=== PATIENT | male | born 1970 | race Caucasian/White ===

== ENCOUNTER 2018-10-12 11:31 | Inpatient (IN) | payer SELFPAY ==
[~2018-10-12] VITALS: Ht 182.9 cm; Wt 86.5 kg
[2018-10-12] MEDS ORDERED: ONDANSETRON HCL 4 MG/2 ML VIAL IV ONE (12:30)
[2018-10-12] MEDS ORDERED: MORPHINE SULFATE 4 MG/ML SYR/VIAL IV ONE (12:30)
[2018-10-12] MEDS ORDERED: NITROGLYCERIN 0.4 MG SL TAB SL PRN (13:30)
[2018-10-12] MEDS ORDERED: MORPHINE SULF INJ 2 MG/ML SYRINGE 1ML IV PRN (13:30)
[2018-10-12 13:58] LABS: Basophils # (auto) 0 uL; Basophils % (auto) 0.6 % (0.0-2.0); Eosinophils # (auto) 0.4 uL; Eosinophils % (auto) 4.9 % (0.0-7.0); Hematocrit 41.4 % (41.0-53.0); Lymphocytes # (auto) 1.4 uL; Mean Corpuscular Hemoglobin 30.8 pg (28.0-32.0); Mean Corpuscular Hgb Conc. 33.8 g/dL (32.0-36.0); Mean Corpuscular Volume 91.2 fL (80.0-100.0); Monocytes # (auto) 0.8 uL; Monocytes % (auto) 9.8 % (0.0-12.0); Neutrophils # (auto) 5.3 uL; Neutrophils % (auto) 66.7 % (37.0-80.0); Platelet Count (auto) 266 10^3/uL (140-450); Red Blood Cells 4.54 10^6/uL (4.5-5.90); Red Cell Distribution Width 14.7 % (11.8-14.3)
[2018-10-12] MEDS ORDERED: ALBUTEROL SULF 2.5 MG/0.5ML(0.5%) NEB SOLN NEB SCH (14:00)
[2018-10-12] MEDS ORDERED: IPRATROPIUM BROM 0.5 MG/2.5ML INH SOL NEB SCH (14:00)
[2018-10-12] MEDS: SOD CHL 0.9%/ KCL 20MEQ 1,000 ML IV SCH ×2 (14:03→23:54)
[2018-10-12 14:11] LABS: Albumin 2.9 g/dL (3.4-5.0); BUN/Creatinine Ratio 22.9; Calcium 8.3 mg/dL (8.5-10.1); Magnesium 2.4 mg/dL (1.6-2.6)
[2018-10-12 14:13] LABS: Bilirubin, Total 0.5 mg/dL (0.2-1.0); Total Protein 6.7 g/dL (6.4-8.2)
[2018-10-12 14:14] LABS: INR 0.96 (0.9-1.15); Partial Thromboplastin Time 26.2 sec (23.64-32.05)
[2018-10-12 14:42] VITALS: BP 138/85
--- NOTE | 2018-10-12 16:30 | NUR ---
OPENING PATIENT IS ON THE FLOOR, WILL FOLLOW UP WITH ASSESSMENT.
[2018-10-12] MEDS ORDERED: ALBUTEROL SULF 2.5 MG/0.5ML(0.5%) NEB SOLN NEB PRN (17:45)
[2018-10-12] MEDS ORDERED: IPRATROPIUM BROM 0.5 MG/2.5ML INH SOL NEB PRN (17:45)
[2018-10-12] MEDS: MORPHINE SULF INJ 2 MG/ML SYRINGE 1ML IV PRN (18:32)
[2018-10-12] MEDS ORDERED: ALBUAER3 IN (19:08)
--- NOTE | 2018-10-12 19:30 | NUR ---
Opening Shift Note Assumed care of patient, awake and alert x4. Patient complains of pain to abdomen area (09/27), will medicate patient as ordered. No S/S of distress/SOB noted. Instructed on plan of care and to call for assistance as needed. Bed is locked in lowest position, side rails x 2 are up, and call light is within reach.
[2018-10-12] MEDS: FAMOTIDINE (10MG/ML) 2ML VL IV SCH (21:17)
[2018-10-12 22:00] VITALS: BP 117/72
--- NOTE | 2018-10-13 02:30 | NUR ---
PT SEEN SLEEPING IN BED ON RA WITH SPO2 92%, BS CLEAR AND DIMINISHED. NO RESP DISTRESS. PRN NEB TX NOT GIVEN AT THIS TIME.
[2018-10-13 05:00] VITALS: BP 133/67
[2018-10-13] MEDS: MORPHINE SULF INJ 2 MG/ML SYRINGE 1ML IV PRN ×3 (05:17→20:41)
--- NOTE | 2018-10-13 07:30 | NUR ---
OPENING SHIFT NOTE ASSUMED CARE OF PATIENT FROM COUNTERSINKER RN ADAN. PATIENT IS AWAKE AND ALERT X4. PATIENT HAS NO S/S OF DISTRESS/SOB OR PAIN. INSTRUCTED PATIENT ON POC, PATIENT VERBALIZED UNDERSTANDING. BED IS IN LOWEST POSITION WITH SIDE RAILS RAISED X2, BED WHEELS LOCKED, AND CALL LIGHT IS WITHIN REACH. WILL CONTINUE TO MONITOR.
--- NOTE | 2018-10-13 07:41 | NUR ---
CLOSING SHIFT NOTE Endorsed patient care to Latasha MARTE.
[2018-10-13 07:44] VITALS: BP 117/70
--- NOTE | 2018-10-13 09:13 | NUR ---
Respiratory note: ROUTINE PRN TX CHECK. HR 61, RR 16, POX 98% ON RA, BREATH SOUNDS ARE CLEAR. NO SOB OR DISTRESS NOTED. PT WAS NOTIFY TO HAVE RN PAGE RT FOR MN TX.
[2018-10-13] MEDS: FAMOTIDINE (10MG/ML) 2ML VL IV SCH ×2 (09:49→22:13)
[2018-10-13] MEDS: SOD CHL 0.9%/ KCL 20MEQ 1,000 ML IV SCH ×2 (10:56→18:45)
[2018-10-13] MEDS ORDERED: LEVOFLOXACIN 750MG 150 ML IV ONE (11:00)
--- NOTE | 2018-10-13 11:02 | NUR ---
MD SEN AT BEDSIDE UPDATED MD ON PATIENT'S STATUS, MD IS AWARE. NO NEW ORDERS GIVEN AT THIS TIME. WILL CONTINUE TO MONITOR.
--- NOTE | 2018-10-13 12:34 | NUR ---
PATIENT TAKEN DOWN TO PREOP VIA GURNEY. PATIENT HAS NO S/S OF DISTRESS/SOB OR PAIN AT THIS TIME. HAND OFF REPORT GIVEN TO PRE OP RN MADYSON
[2018-10-13] MEDS ORDERED: POVIDONE IODINE 10 % TOPICAL OINT 30GM TOP ONE (13:19)
[2018-10-13] MEDS ORDERED: BUPIVACAINE W/ EPINEPH 0.25% INJ 50ML MDV ONE (13:19)
[2018-10-13] MEDS ORDERED: LIDOCAINE W/ EPINEPHRINE 1% 20ML VIAL ONE (13:19)
[2018-10-13] MEDS ORDERED: LIDOCAINE 1% (LOCAL ANESTH.) PF 5ml SDV ONE (13:25)
[2018-10-13] MEDS ORDERED: SUCCINYLCHOLINE CHLORIDE 20 MG/ML 10ML VIAL IV ONE (13:25)
[2018-10-13] MEDS ORDERED: MIDAZOLAM HCL 1MG/1ML-2 ML VIAL ONE (13:28)
[2018-10-13] MEDS ORDERED: ROCURONIUM 10MG/ML 10ML VIAL IV ONE (13:29)
[2018-10-13] MEDS ORDERED: METOCLOPRAMIDE HCL 5MG/ml INJ 2ml VIAL ONE (13:30)
[2018-10-13] MEDS ORDERED: PROPOFOL 10 MG/ML 20 ML IV ONE (13:30)
[2018-10-13] MEDS ORDERED: ONDANSETRON HCL 4 MG/2 ML VIAL IV ONE (13:45)
[2018-10-13] MEDS ORDERED: HYDROmorphone HCL 2 MG/ML VL IV PRN ×2 (13:45)
[2018-10-13] MEDS ORDERED: NALOXONE HCL 0.4 MG/ML VIAL IV PRN (13:45)
[2018-10-13] MEDS ORDERED: fentaNYL CITRATE 100 MCG/2 ML VL ONE (13:47)
[2018-10-13] MEDS ORDERED: ePHEDrine SULFATE 50 MG/ML AMP ONE (14:07)
[2018-10-13] MEDS ORDERED: SODIUM CHLORIDE LOCK 10 ML ONE (14:07)
[2018-10-13] MEDS ORDERED: GLYCOPYRROLATE 0.2 MG/ML 1ML VIAL ONE (15:01)
[2018-10-13] MEDS ORDERED: NEOSTIGMINE 1 MG/ML INJ (10mg/10ML VIAL) ONE (15:01)
--- NOTE | 2018-10-13 15:54 | NUR ---
RECEIVED HAND OFF REPORT FROM OTR OWNER OPERATOR. PER OTR OWNER OPERATOR SHE DID NOT PUT ON JOCK STRAP
--- NOTE | 2018-10-13 16:10 | NUR ---
PATIENT BACK IN ROOM FROM PACU. PATIENT HAS NO S/S OF DISTRESS/SOB OR PAIN. WILL CONTINUE TO MONITOR. BED IS IN LOWEST POSITION WITH SIDE RAILS RAISED X2, BED WHEELS LOCKED, CALL LIGHT IS WITHIN REACH, AND BED ALARM IS ON. WILL CONTINUE TO MONITOR.
[2018-10-13 17:13] VITALS: BP 102/61
--- NOTE | 2018-10-13 19:06 | NUR ---
Respiratory note: ASSESSMENT FOR PRN MED NEB TX. HR 66, SPO2 98%, RR 17, BS DIMINISHED. PT AWARE TO HAVE RN PAGE RT IF MED NEB TX IS NEEDED, WILL CONTINUE TO MONITOR.
--- NOTE | 2018-10-13 19:20 | NUR ---
CLOSING SHIFT NOTE ENDORSED CARE TO PASSENGER BARGE MASTER ESTUARDO RIOS. PATIENT HAS NO S/S OF DISTRESS/SOB OR PAIN.
--- NOTE | 2018-10-13 19:39 | NUR ---
received pt from day rn poc reviewed
[2018-10-13] MEDS: ONDANSETRON HCL 4 MG/2 ML VIAL IV PRN (20:42)
--- NOTE | 2018-10-13 21:40 | NUR ---
resting comfortable dressing dry and intact
[2018-10-13 22:00] VITALS: BP 110/70
[2018-10-14] MEDS: ONDANSETRON HCL 4 MG/2 ML VIAL IV PRN ×2 (03:35→08:29)
[2018-10-14] MEDS: MORPHINE SULF INJ 2 MG/ML SYRINGE 1ML IV PRN ×2 (03:35→08:29)
[2018-10-14 05:00] VITALS: BP 116/61
[2018-10-14] MEDS: SOD CHL 0.9%/ KCL 20MEQ 1,000 ML IV SCH (06:39)
--- NOTE | 2018-10-14 06:57 | NUR ---
pain relieved with med given, report given to am nurse poc reviewed
[2018-10-14 09:00] VITALS: BP_SYST 113; BP_SYST 128; BP_DIAS 63; BP_DIAS 77
--- NOTE | 2018-10-14 09:02 | NUR ---
Patient stated he lives with sister at home. Patient is not homeless. Patient stated he will return to sister's house when he is discharged,
--- NOTE | 2018-10-14 09:37 | NUR ---
Respiratory note: ASSESSED PATIENT FOR PRN BREATHING TX. PATIENT IS AWAKE AND ALERT. NO RESPIRATORY DISTRESS NOTED OR STATED AT THIS TIME. PATIENT IS CURRENTLY ON ROOM AIR AND SPO2 96%, RR 16, HR 61. PATIENT WAS EDUCATED TO HAVE RT PAGED IF BREATHING TX IS NEEDED. WILL CONTINUE TO MONITOR. WILL NOTIFY RN.
[2018-10-14] MEDS: FAMOTIDINE (10MG/ML) 2ML VL IV SCH (09:57)
--- NOTE | 2018-10-14 10:00 | NUR ---
Patient using jock strap at bedside.
--- NOTE | 2018-10-14 12:02 | NUR ---
Rounded on patient. Patient seen eating a whole tray of moroccan food brought in by family. Regular texture and regular diet. No distress noted after eating solid food.
--- NOTE | 2018-10-14 15:30 | NUR ---
Spoke with Dr. Roche. Explained to MD patient lives with sister. Per MD, patient may be discharged home. Explained to MD patient stated he has hepatitic C and cannot take OTC ibuprofen, per MD no new prescriptions given and have patient follow with primary care regarding pain management. Patient and family verbalized understanding. MD aware patient ate whole tray of mozambican food brought in by family for lunch, patient may be discharged home without waiting for dinner.
--- NOTE | 2018-10-14 17:09 | NUR ---
Discharge instructions given as ordered. Encourage to follow up with PMD as instructed. All questions and concerns addressed. Patient verbalized understanding. Medication reconciliation form completed and copy given to patient. Patient denies home medications held in Pharmacy. IV removed with catheter intact, pressure dressing applied. Patient requested to ambulate to vehicle with all personal belongings, accompanied by family member. No distress noted at time of departure. Patient is returning to his sister's house where he stated he lives. Patient has a cane for home use. Patient given Alyssa Cardozo's business card for continuum of care assistance.
== END 2018-10-14 17:09 | disposition home or self-care (01) | DRG 351 ==
LOC: ER 11:38 → MERGE 11:39 → OVERFLOW 11:39 → WEST WING 17:12
PROVIDERS: ADMIT Nurse Practitioner Acute Care; ATTEND Internal Medicine Pulmonary Disease
PROC: 0YQ60ZZ Repair Left Inguinal Region, Open Approach (ICD-10-PCS; principal; 2018-10-13 13:31)
DX: K40.30 Unilateral inguinal hernia, with obstruction, without gangrene, not specified as recurrent (principal); E44.0 Moderate protein-calorie malnutrition; F17.210 Nicotine dependence, cigarettes, uncomplicated; J45.909 Unspecified asthma, uncomplicated; Z96.651 Presence of right artificial knee joint; Z59.0 Homelessness; Z68.25 Body mass index [BMI] 25.0-25.9, adult; Z88.0 Allergy status to penicillin; Z88.1 Allergy status to other antibiotic agents; Z90.49 Acquired absence of other specified parts of digestive tract
CPT/HCPCS: 36415; 71045; 80053; 83735; 85025; 85610; 85730; 93005; G0378; J0330; J1956; J2250; J2405; J2704; J3490

== ENCOUNTER 2019-05-30 16:34 | Emergency (ER) | payer MEDICAID ==
[~2019-05-30] VITALS: Ht 182.9 cm; Wt 85.7 kg
[~2019-05-30 16:34] MED LIST: ALBUAER3 IN
[2019-05-30] MEDS ORDERED: ALBUTEROL SULF 2.5 MG/0.5ML(0.5%) NEB SOLN NEB ONE (17:30)
[2019-05-30] MEDS ORDERED: methylPREDNISolone SOD SUCC 125 MG/2 ML VL IV ONE (17:30)
[2019-05-30] MEDS ORDERED: ACETAMINOPHEN 500 MG TAB PO ONE (17:30)
[2019-05-30] MEDS ORDERED: IPRATROPIUM BROM 0.5 MG/2.5ML INH SOL NEB ONE (17:30)
[2019-05-30 17:38] LABS: Basophils # (auto) 0.1 uL; Basophils % (auto) 0.3 % (0.0-2.0); Eosinophils # (auto) 0 uL; Eosinophils % (auto) 0.2 % (0.0-7.0); Hematocrit 44.7 % (41.0-53.0); Hemoglobin 15.5 g/dL (13.5-17.5); Lymphocytes # (auto) 1.8 uL; Lymphocytes % (auto) 11.3 % (10.0-50.0); Mean Corpuscular Hemoglobin 31.4 pg (28.0-32.0); Mean Corpuscular Hgb Conc. 34.6 g/dL (32.0-36.0); Mean Corpuscular Volume 90.7 fL (80.0-100.0); Monocytes # (auto) 2.3 uL; Monocytes % (auto) 14.9 % (0.0-12.0); Neutrophils # (auto) 11.4 uL; Neutrophils % (auto) 73.3 % (37.0-80.0); Platelet Count (auto) 196 10^3/uL (140-450); Red Blood Cells 4.93 10^6/uL (4.5-5.90); White Blood Cell 15.6 10^3/uL (4.4-10.8)
[2019-05-30 18:00] LABS: Albumin 3.1 g/dL (3.4-5.0); BUN/Creatinine Ratio 13.4; Calcium 8.2 mg/dL (8.5-10.1); Potassium 3.4 mmol/L (3.5-5.1)
[2019-05-30 18:02] LABS: Bilirubin, Total 1.1 mg/dL (0.2-1.0); Total Protein 7.6 g/dL (6.4-8.2)
[2019-05-30] MEDS ORDERED: cefTRIAXone SOD 1,000 MG VL IM ONE (19:00)
[2019-05-30 19:35] VITALS: BP 109/70
[2019-05-30] MEDS ORDERED: SODIUM CHLORIDE 0.9% 500 ML IV ONE (19:45)
[2019-05-30] MEDS ORDERED: DOXYCYCLINE 100MG/250ML 250 ML IV ONE ×2 (19:45→20:43)
== END 2019-05-30 21:20 | disposition home or self-care (01) ==
LOC: ER 16:34
DX: J21.9 Acute bronchiolitis, unspecified (principal); J45.909 Unspecified asthma, uncomplicated
CPT/HCPCS: 36415; 71046; 80053; 83605; 83880; 85025; 87040; 87804; 93005; 94640; 96365; 96375; 99285; J0696; J2930; J3490; J7611; J7644

== ENCOUNTER 2020-08-20 03:09 | Emergency (ER) | payer MEDICAID ==
[~2020-08-20] VITALS: Ht 182.9 cm; Wt 106.6 kg
[2020-08-20] MEDS ORDERED: ONDANSETRON HCL 4 MG/2 ML VIAL IV ONE ×2 (05:00→07:45)
[2020-08-20] MEDS ORDERED: MORPHINE SULFATE 4 MG/ML SYR/VIAL IV ONE (05:00)
[2020-08-20 05:19] LABS: Basophils # (auto) 0.1 10 ^3/uL (0-0.2); Basophils % (auto) 0.7 % (0.0-2.0); Eosinophils # (auto) 0.5 10 ^3/uL (0-0.8); Eosinophils % (auto) 4.3 % (0.0-7.0); Hematocrit 41.7 % (41.0-53.0); Hemoglobin 14.2 g/dL (13.5-17.5); Lymphocytes # (auto) 2.5 10 ^3/uL (0.4-5.4); Lymphocytes % (auto) 20.1 % (10.0-50.0); Mean Corpuscular Hemoglobin 31.1 pg (28.0-32.0); Mean Corpuscular Hgb Conc. 34.1 g/dL (32.0-36.0); Mean Corpuscular Volume 91.3 fL (80.0-100.0); Monocytes # (auto) 1.2 10 ^3/uL (0-1.3); Monocytes % (auto) 9.6 % (0.0-12.0); Neutrophils % (auto) 65.3 % (37.0-80.0); Platelet Count (auto) 358 10^3/uL (140-450); Red Blood Cells 4.56 10^6/uL (4.5-5.90); Red Cell Distribution Width 13.9 % (11.8-14.3); White Blood Cell 12.2 10^3/uL (4.4-10.8)
[2020-08-20] MEDS ORDERED: CLINDAMYCIN 900MG IV 50 ML IV ONE (05:30)
[2020-08-20 05:36] LABS: Albumin 2.9 g/dL (3.4-5.0); Calcium 8.3 mg/dL (8.5-10.1); Potassium 4.3 mmol/L (3.5-5.1)
[2020-08-20 05:39] LABS: Total Protein 6.8 g/dL (6.4-8.2)
[2020-08-20 06:36] LABS: INR 1.02 (0.9-1.15); Partial Thromboplastin Time 26.1 sec (23.0-31.2)
[2020-08-20] MEDS ORDERED: VANCOMYCIN 1GM/250ML 250 ML IV ONE (07:00)
[2020-08-20] MEDS ORDERED: cefTRIAXone 1GM/50ML D5W 50 ML IV ONE (07:00)
[2020-08-20] MEDS ORDERED: HYDROmorphone HCL 2 MG/ML VL IV ONE (07:45)
[2020-08-20 08:00] VITALS: BP 173/95
== END 2020-08-20 11:54 | disposition home or self-care (01) ==
LOC: ER 03:12
DX: S82.91XA Unspecified fracture of right lower leg, initial encounter for closed fracture (principal); L03.115 Cellulitis of right lower limb; J45.909 Unspecified asthma, uncomplicated; Z20.822 Contact with and (suspected) exposure to COVID-19; Z88.0 Allergy status to penicillin; Z88.1 Allergy status to other antibiotic agents; V43.52XA Car driver injured in collision with other type car in traffic accident, initial encounter; Y93.89 Activity, other specified; Y92.89 Other specified places as the place of occurrence of the external cause; Y99.8 Other external cause status
CPT/HCPCS: 36415; 73700; 80053; 83605; 85025; 85610; 85730; 87040; 87426; 93971; 96365; 96366; 96367; 96368; 96375; 96376; 99285; J0696; J1170; J2270; J2405; J3370; J3490; J7030

== ENCOUNTER 2020-09-10 01:04 | Emergency (ER) | payer OTHER ==
[~2020-09-10] VITALS: Ht 182.9 cm; Wt 104.3 kg
[2020-09-10 03:47] LABS: Basophils # (auto) 0.1 10 ^3/uL (0-0.2); Basophils % (auto) 0.7 % (0.0-2.0); Eosinophils # (auto) 0.5 10 ^3/uL (0-0.8); Eosinophils % (auto) 5.5 % (0.0-7.0); Hematocrit 42.8 % (41.0-53.0); Hemoglobin 14.9 g/dL (13.5-17.5); Lymphocytes # (auto) 2.8 10 ^3/uL (0.4-5.4); Lymphocytes % (auto) 33.2 % (10.0-50.0); Mean Corpuscular Hemoglobin 31.7 pg (28.0-32.0); Mean Corpuscular Hgb Conc. 34.9 g/dL (32.0-36.0); Mean Corpuscular Volume 90.9 fL (80.0-100.0); Monocytes # (auto) 0.9 10 ^3/uL (0-1.3); Monocytes % (auto) 10.5 % (0.0-12.0); Neutrophils # (auto) 4.2 10 ^3/uL (1.6-8.6); Neutrophils % (auto) 50.1 % (37.0-80.0); Platelet Count (auto) 283 10^3/uL (140-450); Red Blood Cells 4.71 10^6/uL (4.5-5.90); Red Cell Distribution Width 13.9 % (11.8-14.3); White Blood Cell 8.3 10^3/uL (4.4-10.8)
[2020-09-10 04:17] LABS: Albumin 3.1 g/dL (3.4-5.0); BUN/Creatinine Ratio 15.7; Calcium 8.3 mg/dL (8.5-10.1); Magnesium 1.9 mg/dL (1.6-2.6); Potassium 3.8 mmol/L (3.5-5.1)
[2020-09-10 04:20] LABS: Bilirubin, Total 0.3 mg/dL (0.2-1.0); Total Protein 7.2 g/dL (6.4-8.2)
[2020-09-10] MEDS ORDERED: VANCOMYCIN 1GM/250ML 250 ML IV ONE (04:45)
[2020-09-10] MEDS ORDERED: SODIUM CHLORIDE 0.9% 1,000 ML IV ONE (04:45)
[2020-09-10] MEDS ORDERED: fentaNYL CITRATE 100 MCG/2 ML VL IV ONE (04:45)
[2020-09-10] MEDS ORDERED: ONDANSETRON HCL 4 MG/2 ML VIAL IV ONE (04:45)
[2020-09-10 05:30] LABS: CRP High Sensitivity 0.34 mg/dL (< 0.3)
[2020-09-10 05:31] VITALS: BP 139/66
== END 2020-09-10 06:18 | disposition left against medical advice (07) ==
LOC: ER 02:23
DX: L03.114 Cellulitis of left upper limb (principal); Z88.0 Allergy status to penicillin; Z88.1 Allergy status to other antibiotic agents
CPT/HCPCS: 36415; 73130; 80053; 83605; 83735; 85025; 85652; 86141; 87040; 96365; 96375; 99284; J2405; J3010; J3370; J7030

== ENCOUNTER 2021-04-26 14:58 | Emergency (ER) | payer MEDICAID ==
[~2021-04-26] VITALS: Ht 182.9 cm; Wt 108.9 kg
[2021-04-26 17:02] VITALS: BP 136/94
[2021-04-26] MEDS ORDERED: IBUP800T27 PO (17:19)
[2021-04-26] MEDS ORDERED: SULF400T11 PO (17:19)
== END 2021-04-26 17:33 | disposition home or self-care (01) ==
LOC: ER 14:58
DX: L03.011 Cellulitis of right finger (principal); J45.909 Unspecified asthma, uncomplicated; Z88.0 Allergy status to penicillin; Z88.1 Allergy status to other antibiotic agents

== ENCOUNTER 2021-05-10 13:35 | Inpatient (IN) | payer MEDICAID ==
[~2021-05-10] VITALS: Ht 182.9 cm; Wt 111.4 kg
[~2021-05-10 13:35] MED LIST changes: +IBUP800T27 PO; +SULF400T11 PO
[2021-05-10 16:36] LABS: Basophils # (auto) 0 10 ^3/uL (0-0.2); Basophils % (auto) 0.7 % (0.0-2.0); Eosinophils # (auto) 0.1 10 ^3/uL (0-0.8); Eosinophils % (auto) 1.3 % (0.0-7.0); Hematocrit 47.4 % (41.0-53.0); Lymphocytes # (auto) 1.3 10 ^3/uL (0.4-5.4); Lymphocytes % (auto) 18.4 % (10.0-50.0); Mean Corpuscular Hemoglobin 30.9 pg (28.0-32.0); Mean Corpuscular Hgb Conc. 33.9 g/dL (32.0-36.0); Mean Corpuscular Volume 91.1 fL (80.0-100.0); Monocytes # (auto) 0.8 10 ^3/uL (0-1.3); Monocytes % (auto) 11.4 % (0.0-12.0); Neutrophils % (auto) 68.2 % (37.0-80.0); Nucleated Red Blood Cells % 0.2 %; Red Cell Distribution Width 14.1 % (11.8-14.3); White Blood Cell 7.3 10^3/uL (4.4-10.8)
[2021-05-10 16:55] LABS: Potassium 3.9 mmol/L (3.5-5.1)
[2021-05-10 17:04] LABS: Albumin 3.8 g/dL (3.4-5.0); BUN/Creatinine Ratio 15.7; Bilirubin, Total 0.6 mg/dL (0.2-1.0); Calcium 9.1 mg/dL (8.5-10.1); Total Protein 7.6 g/dL (6.4-8.2)
[2021-05-10] MEDS ORDERED: IOHEXOL 300 MG/ML 100ML BOTTLE IJ ONE (17:23)
[2021-05-10] MEDS ORDERED: SODIUM CHLORIDE 0.9% 1,000 ML IV ONE (19:00)
[2021-05-10] MEDS ORDERED: SUCCINYLCHOLINE CHLORIDE 20 MG/ML 10ML VIAL IV ONE (19:11)
[2021-05-10] MEDS ORDERED: MEPERIDINE HCL (25 MG/ML) 1ML VIAL ONE (19:17)
[2021-05-10] MEDS ORDERED: fentaNYL CITRATE 100 MCG/2 ML VL ONE (19:17)
[2021-05-10] MEDS ORDERED: MIDAZOLAM HCL 2MG/2ML 2ml VIAL (1mg/ml) ONE (19:17)
[2021-05-10] MEDS ORDERED: GLYCOPYRROLATE 0.2 MG/ML 1ML VIAL ONE (19:18)
[2021-05-10] MEDS ORDERED: ONDANSETRON HCL 4 MG/2 ML VIAL ONE ×2 (19:18→23:39)
[2021-05-10] MEDS ORDERED: NEOSTIGMINE 1 MG/ML INJ (10mg/10ML VIAL) ONE (19:18)
[2021-05-10] MEDS ORDERED: SODIUM CHLORIDE LOCK 10 ML ONE (19:18)
[2021-05-10 19:34] LABS: INR 1.02 (0.9-1.15); Partial Thromboplastin Time 27.2 sec (23.6-33.0)
[2021-05-10] MEDS ORDERED: ceFAZolin 1GM/50ML 100 ML IV ONE (19:35)
[2021-05-10] MEDS ORDERED: levoFLOXacin 500MG 100 ML IV ONE (19:39)
[2021-05-10] MEDS ORDERED: METOCLOPRAMIDE HCL 5MG/ml INJ 2ml VIAL IV PRN (19:45)
[2021-05-10] MEDS ORDERED: HYDROmorphone HCL 2 MG/ML VL IV PRN (19:45)
[2021-05-10] MEDS ORDERED: MORPHINE SULFATE INJECTION 2 MG/ML SYRG IV PRN ×2 (19:45→23:00)
[2021-05-10] MEDS ORDERED: POVIDONE IODINE 10 % TOPICAL OINT 30GM TOP ONE (20:35)
[2021-05-10] MEDS ORDERED: SUGAMMADEX 200mg/2ml Vial (100MG/ML) IV ONE (20:37)
[2021-05-10] MEDS ORDERED: NITROGLYCERIN 0.4 MG SL TAB SL PRN (23:00)
[2021-05-10] MEDS ORDERED: ONDANSETRON HCL 4 MG/2 ML VIAL IV PRN (23:00)
[2021-05-10] MEDS ORDERED: ACETAMINOPHEN 500 MG TAB PO PRN (23:00)
[2021-05-10] MEDS ORDERED: DOCUSATE SOD 100 MG CAP PO PRN (23:00)
[2021-05-10] MEDS ORDERED: DexAMETHasone SOD PHOS 10MG/1ML VIAL INJ IV SCH (23:30)
[2021-05-11] MEDS: D5W/SOD CHLO 0.9% 1,000 ML IV SCH ×2 (00:39→12:32)
[2021-05-11] MEDS: MORPHINE SULFATE 4 MG/ML SYR/VIAL IV PRN ×4 (00:41→16:46)
[2021-05-11 05:00] VITALS: BP 112/77
[2021-05-11 05:30] VITALS: BP 112/77
[2021-05-11] MEDS: SODIUM CHLOR 0.9% PF (SALINE LOCK) 10ML VIAL/SYR IV SCH ×3 (06:33→22:08)
[2021-05-11] MEDS: BUDESONIDE (INHALATION) 180 MCG IH IN SCH ×2 (07:00→21:18)
[2021-05-11 08:24] LABS: Basophils # (auto) 0 10 ^3/uL (0-0.2); Basophils % (auto) 0.2 % (0.0-2.0); Eosinophils # (auto) 0 10 ^3/uL (0-0.8); Hemoglobin 15.2 g/dL (13.5-17.5); Lymphocytes # (auto) 0.4 10 ^3/uL (0.4-5.4); Lymphocytes % (auto) 5.5 % (10.0-50.0); Mean Corpuscular Hemoglobin 30.9 pg (28.0-32.0); Mean Corpuscular Hgb Conc. 33.8 g/dL (32.0-36.0); Mean Corpuscular Volume 91.4 fL (80.0-100.0); Monocytes # (auto) 0.4 10 ^3/uL (0-1.3); Monocytes % (auto) 4.7 % (0.0-12.0); Neutrophils # (auto) 6.9 10 ^3/uL (1.6-8.6); Neutrophils % (auto) 89.6 % (37.0-80.0); Red Blood Cells 4.93 10^6/uL (4.5-5.90); White Blood Cell 7.7 10^3/uL (4.4-10.8)
[2021-05-11] MEDS: HYDROcodone-ACET 5/325MG TAB PO PRN ×2 (08:27→22:21)
[2021-05-11 08:52] LABS: Potassium 4.2 mmol/L (3.5-5.1)
[2021-05-11 09:00] VITALS: BP 117/68
[2021-05-11 09:06] LABS: Albumin 3.1 g/dL (3.4-5.0); BUN/Creatinine Ratio 10.8; Bilirubin, Total 0.5 mg/dL (0.2-1.0); Calcium 8.3 mg/dL (8.5-10.1); Total Protein 6.7 g/dL (6.4-8.2)
[2021-05-11] MEDS: FAMOTIDINE (10MG/ML) 2ML VL IV SCH ×2 (09:54→22:07)
[2021-05-11] MEDS: ENOXAPARIN SOD 40 MG/0.4 ML SYRINGE SC SCH (09:55)
[2021-05-11] MEDS: ZINC SULFATE 220mg CAP or TAB PO SCH (09:57)
[2021-05-11] MEDS: CHOLECALCIFEROL (VITD3) 2,000 UNIT CAP/TAB PO SCH (09:57)
[2021-05-11] MEDS: ASCORBIC ACID 1,000 MG TAB PO SCH (09:57)
[2021-05-11] MEDS ORDERED: AZITHROMYCIN 500MG/ 250ML 250 ML IV SCH (10:00)
[2021-05-11] MEDS: ALBUTEROL SULF HFA 90MCG INH 200DOSE IN PRN (11:07)
[2021-05-11 13:00] VITALS: BP 116/68
[2021-05-11] MEDS ORDERED: metroNIDAZOLE 500MG/100ML 100 ML IV ONE (15:30)
[2021-05-11] MEDS ORDERED: cefTRIAXone 1GM/50ML D5W 50 ML IV ONE (15:45)
[2021-05-11 17:00] VITALS: BP 107/60
[2021-05-11] MEDS ORDERED: LACTULOSE 20Gm/30ML SOLN PO PRN (18:00)
[2021-05-11 18:20] LABS: Urine Bacteria NONE SEEN /hpf (None Seen); Urine Blood TRACE /uL (Negative); Urine Mucus FEW (None Seen); Urine Specific Gravity 1.027 (1.001-1.035); Urine WBC 1 /hpf (0 - 3)
[2021-05-11] MEDS: AZTREONAM 1GM INJ 1 GM in D5W 5% 50 ML IV SCH (21:02)
[2021-05-11 22:00] VITALS: BP 98/66
[2021-05-11] MEDS: metroNIDAZOLE 500MG/100ML 100 ML IV SCH (22:07)
[2021-05-11] MEDS: DOCUSATE SOD 100 MG CAP PO SCH (22:18)
[2021-05-12] MEDS: D5W/SOD CHLO 0.9% 1,000 ML IV SCH ×2 (02:05→15:04)
[2021-05-12] MEDS: MORPHINE SULFATE 4 MG/ML SYR/VIAL IV PRN ×4 (02:40→20:45)
[2021-05-12 05:00] VITALS: BP 107/57
[2021-05-12] MEDS: AZTREONAM 1GM INJ 1 GM in D5W 5% 50 ML IV SCH ×3 (05:05→20:47)
[2021-05-12] MEDS: metroNIDAZOLE 500MG/100ML 100 ML IV SCH ×3 (06:14→22:24)
[2021-05-12] MEDS: SODIUM CHLOR 0.9% PF (SALINE LOCK) 10ML VIAL/SYR IV SCH ×3 (06:14→22:24)
[2021-05-12 07:54] LABS: INR 1.14 (0.9-1.15); Partial Thromboplastin Time 25.9 sec (23.6-33.0)
[2021-05-12 09:00] VITALS: BP 101/56
[2021-05-12] MEDS ORDERED: cefTRIAXone 1GM/50ML D5W 50 ML IV SCH (09:00)
[2021-05-12] MEDS: FAMOTIDINE (10MG/ML) 2ML VL IV SCH ×2 (09:45→22:24)
[2021-05-12] MEDS: ASCORBIC ACID 1,000 MG TAB PO SCH (09:45)
[2021-05-12] MEDS: CHOLECALCIFEROL (VITD3) 2,000 UNIT CAP/TAB PO SCH (09:45)
[2021-05-12] MEDS: ZINC SULFATE 220mg CAP or TAB PO SCH (09:45)
[2021-05-12] MEDS: ENOXAPARIN SOD 40 MG/0.4 ML SYRINGE SC SCH (09:45)
[2021-05-12] MEDS: DOCUSATE SOD 100 MG CAP PO SCH ×2 (09:46→22:25)
[2021-05-12] MEDS: HYDROcodone-ACET 5/325MG TAB PO PRN (09:52)
[2021-05-12] MEDS: BUDESONIDE (INHALATION) 180 MCG IH IN SCH ×2 (10:00→20:54)
[2021-05-12 10:23] LABS: Basophils # (auto) 0 10 ^3/uL (0-0.2); Basophils % (auto) 0.5 % (0.0-2.0); Eosinophils # (auto) 0.1 10 ^3/uL (0-0.8); Eosinophils % (auto) 1.3 % (0.0-7.0); Hematocrit 42.3 % (41.0-53.0); Hemoglobin 13.9 g/dL (13.5-17.5); Lymphocytes # (auto) 2.2 10 ^3/uL (0.4-5.4); Lymphocytes % (auto) 27.4 % (10.0-50.0); Mean Corpuscular Hemoglobin 30.6 pg (28.0-32.0); Mean Corpuscular Volume 92.9 fL (80.0-100.0); Monocytes # (auto) 1.1 10 ^3/uL (0-1.3); Monocytes % (auto) 13.7 % (0.0-12.0); Neutrophils # (auto) 4.7 10 ^3/uL (1.6-8.6); Neutrophils % (auto) 57.1 % (37.0-80.0); Nucleated Red Blood Cells % 0.1 %; Red Blood Cells 4.55 10^6/uL (4.5-5.90); Red Cell Distribution Width 14.1 % (11.8-14.3); White Blood Cell 8.2 10^3/uL (4.4-10.8)
[2021-05-12 10:43] LABS: Potassium 3.6 mmol/L (3.5-5.1)
[2021-05-12 10:53] LABS: Albumin 2.7 g/dL (3.4-5.0); BUN/Creatinine Ratio 12.9; Bilirubin, Total 0.2 mg/dL (0.2-1.0); Magnesium 3.2 mg/dL (1.6-2.6); Phosphorus 2.7 mg/dL (2.5-4.90); Total Protein 5.9 g/dL (6.4-8.2)
[2021-05-12 13:00] VITALS: BP 106/58
[2021-05-12] MEDS: ALBUTEROL SULF HFA 90MCG INH 200DOSE IN PRN (15:05)
[2021-05-12 17:11] VITALS: BP 101/66
[2021-05-12] MEDS ORDERED: ENOXAPARIN SOD 100 MG/1 ML SYRINGE SC ONE (19:00)
[2021-05-12] MEDS: SODIUM CHLORIDE 0.9% 1,000 ML IV SCH (20:47)
[2021-05-12 22:00] VITALS: BP 96/61
[2021-05-13] MEDS: MORPHINE SULFATE 4 MG/ML SYR/VIAL IV PRN ×3 (02:20→12:42)
[2021-05-13 05:00] VITALS: BP 119/83
[2021-05-13] MEDS: AZTREONAM 1GM INJ 1 GM in D5W 5% 50 ML IV SCH (05:00)
[2021-05-13] MEDS: metroNIDAZOLE 500MG/100ML 100 ML IV SCH ×2 (06:20→14:00)
[2021-05-13] MEDS: SODIUM CHLOR 0.9% PF (SALINE LOCK) 10ML VIAL/SYR IV SCH ×2 (06:20→14:00)
[2021-05-13 07:43] LABS: Basophils # (auto) 0.1 10 ^3/uL (0-0.2); Basophils % (auto) 0.7 % (0.0-2.0); Eosinophils # (auto) 0.1 10 ^3/uL (0-0.8); Eosinophils % (auto) 1.4 % (0.0-7.0); Hematocrit 43.5 % (41.0-53.0); Hemoglobin 14.4 g/dL (13.5-17.5); Lymphocytes # (auto) 1.6 10 ^3/uL (0.4-5.4); Lymphocytes % (auto) 21.3 % (10.0-50.0); Mean Corpuscular Hemoglobin 30.6 pg (28.0-32.0); Mean Corpuscular Hgb Conc. 33.2 g/dL (32.0-36.0); Mean Corpuscular Volume 92.4 fL (80.0-100.0); Monocytes # (auto) 0.9 10 ^3/uL (0-1.3); Monocytes % (auto) 12.1 % (0.0-12.0); Neutrophils # (auto) 4.9 10 ^3/uL (1.6-8.6); Neutrophils % (auto) 64.5 % (37.0-80.0); Nucleated Red Blood Cells % 0.1 %; Red Blood Cells 4.71 10^6/uL (4.5-5.90); White Blood Cell 7.5 10^3/uL (4.4-10.8)
[2021-05-13 07:47] LABS: INR 1.05 (0.9-1.15); Partial Thromboplastin Time 31.1 sec (23.6-33.0)
[2021-05-13] MEDS: FAMOTIDINE (10MG/ML) 2ML VL IV SCH (08:20)
[2021-05-13] MEDS: ZINC SULFATE 220mg CAP or TAB PO SCH (08:20)
[2021-05-13] MEDS: CHOLECALCIFEROL (VITD3) 2,000 UNIT CAP/TAB PO SCH (08:21)
[2021-05-13] MEDS: ASCORBIC ACID 1,000 MG TAB PO SCH (08:21)
[2021-05-13] MEDS: DOCUSATE SOD 100 MG CAP PO SCH (08:21)
[2021-05-13 08:31] VITALS: BP 127/71
[2021-05-13 08:38] LABS: Magnesium 2.1 mg/dL (1.6-2.6); Phosphorus 2.6 mg/dL (2.5-4.90)
[2021-05-13] MEDS ORDERED: ENOXAPARIN SOD 100 MG/1 ML SYRINGE SC SCH (10:00)
[2021-05-13] MEDS ORDERED: IOHEXOL 350 MG/ML 100ML IJ ONE (10:48)
[2021-05-13] MEDS: SODIUM CHLORIDE 0.9% 1,000 ML IV SCH (11:40)
[2021-05-13] MEDS ORDERED: levoFLOXacin 750MG 150 ML IV ONE (12:15)
[2021-05-13 12:33] VITALS: BP 126/66
[2021-05-13] MEDS ORDERED: ZINC220T6 PO (15:22)
[2021-05-13] MEDS ORDERED: ASCO10003 PO (15:22)
[2021-05-13] MEDS ORDERED: HYDR-4902 PO (15:22)
[2021-05-13] MEDS ORDERED: CHOL1CAP47 PO (15:22)
[2021-05-13] MEDS ORDERED: LEVO-28 PO (15:27)
[2021-05-13] MEDS ORDERED: IBUP600T27 PO (15:27)
[2021-05-13 16:53] VITALS: BP 136/76
[2021-05-14] MEDS ORDERED: ENOXAPARIN SOD 40 MG/0.4 ML SYRINGE SC SCH (10:00)
[2021-05-14] MEDS ORDERED: levoFLOXacin 750MG 150 ML IV SCH (10:00)
== END 2021-05-13 18:41 | disposition home or self-care (01) | DRG 227 ==
LOC: ER 13:40 → OVERFLOW 23:12 → TELE-WESTW 23:49 → WEST WING 05-11 03:14
PROVIDERS: ADMIT Nurse Practitioner Family; ATTEND Internal Medicine
PROC: 0WQF0ZZ Repair Abdominal Wall, Open Approach (ICD-10-PCS; principal; 2021-05-10 19:43)
DX: K43.6 Other and unspecified ventral hernia with obstruction, without gangrene (principal); U07.1 COVID-19; I10 Essential (primary) hypertension; F17.210 Nicotine dependence, cigarettes, uncomplicated; J45.909 Unspecified asthma, uncomplicated; F15.90 Other stimulant use, unspecified, uncomplicated; E66.9 Obesity, unspecified; Z88.1 Allergy status to other antibiotic agents; Z88.0 Allergy status to penicillin; Z90.49 Acquired absence of other specified parts of digestive tract; Z83.3 Family history of diabetes mellitus; Z80.0 Family history of malignant neoplasm of digestive organs; Z82.49 Family history of ischemic heart disease and other diseases of the circulatory system
CPT/HCPCS: 36415; 71045; 71275; 74177; 80053; 81001; 82150; 82728; 83036; 83690; 83735; 83880; 84100; 84484; 85025; 85379; 85610; 85730; 86160; 87040; 87081; 87086; 87426; 93970; 94640; 96365; 96372; G0378; J0330; J0690; J0696; J1100; J1956; J2250; J2405; J3490; J7042; J7060

== ENCOUNTER 2021-06-07 19:44 | Emergency (ER) | payer MEDICAID ==
[~2021-06-07] VITALS: Ht 182.9 cm; Wt 105.2 kg
[~2021-06-07 19:44] MED LIST changes: +ASCO10003 PO; +CHOL1CAP47 PO; +HYDR-4902 PO; +IBUP600T27 PO; -IBUP800T27 PO; +LEVO-28 PO; -SULF400T11 PO; +ZINC220T6 PO
[2021-06-07] MEDS ORDERED: cefTRIAXone SOD 1,000 MG VL IM ONE (20:45)
[2021-06-07] MEDS ORDERED: KETOROLAC TROMETH 60MG/2ML VIAL IM ONE (20:45)
[2021-06-07] MEDS ORDERED: CLIN150C8 PO (20:49)
[2021-06-07 23:02] VITALS: BP 122/85
== END 2021-06-07 23:03 | disposition home or self-care (01) ==
LOC: ER 19:45
DX: T81.49XA Infection following a procedure, other surgical site, initial encounter (principal); J45.909 Unspecified asthma, uncomplicated; F17.210 Nicotine dependence, cigarettes, uncomplicated; F15.10 Other stimulant abuse, uncomplicated; Z90.49 Acquired absence of other specified parts of digestive tract; Z88.1 Allergy status to other antibiotic agents
CPT/HCPCS: 96372; 99284; J0696; J1885

== ENCOUNTER 2021-06-30 14:45 | Emergency (ER) | payer MEDICAID ==
[~2021-06-30] VITALS: Ht 182.9 cm; Wt 101.2 kg
[~2021-06-30 14:45] MED LIST changes: +CLIN150C8 PO
[2021-06-30 14:46] VITALS: BP 144/103
== END 2021-06-30 18:09 | disposition admitted as inpatient to this hospital (09) ==
LOC: ER 14:45
DX: G89.18 Other acute postprocedural pain (principal); R10.30 Lower abdominal pain, unspecified; J45.909 Unspecified asthma, uncomplicated; F17.210 Nicotine dependence, cigarettes, uncomplicated; Z90.49 Acquired absence of other specified parts of digestive tract; Z79.1 Long term (current) use of non-steroidal anti-inflammatories (NSAID); Z79.2 Long term (current) use of antibiotics; Z79.899 Other long term (current) drug therapy; Z88.0 Allergy status to penicillin; Z88.8 Allergy status to other drugs, medicaments and biological substances
CPT/HCPCS: 71045; 74176

== ENCOUNTER 2021-09-01 01:38 | Emergency (ER) | payer MEDICAID ==
[~2021-09-01] VITALS: Ht 182.9 cm; Wt 99.8 kg
[2021-09-01 05:21] LABS: Urine WBC None Seen /hpf (0 - 3)
[2021-09-01 05:23] LABS: Basophils # (auto) 0.1 10 ^3/uL (0-0.2); Basophils % (auto) 0.9 % (0.0-2.0); Eosinophils # (auto) 0.3 10 ^3/uL (0-0.8); Eosinophils % (auto) 3.1 % (0.0-7.0); Hematocrit 44.6 % (41.0-53.0); Hemoglobin 15.5 g/dL (13.5-17.5); Lymphocytes # (auto) 2.5 10 ^3/uL (0.4-5.4); Lymphocytes % (auto) 26.3 % (10.0-50.0); Mean Corpuscular Hemoglobin 30.4 pg (28.0-32.0); Mean Corpuscular Hgb Conc. 34.7 g/dL (32.0-36.0); Mean Corpuscular Volume 87.5 fL (80.0-100.0); Monocytes # (auto) 1.1 10 ^3/uL (0-1.3); Monocytes % (auto) 11.6 % (0.0-12.0); Neutrophils # (auto) 5.6 10 ^3/uL (1.6-8.6); Neutrophils % (auto) 58.1 % (37.0-80.0); Nucleated Red Blood Cells % 0.1 %; Red Cell Distribution Width 14.5 % (11.8-14.3); White Blood Cell 9.6 10^3/uL (4.4-10.8)
[2021-09-01 06:00] LABS: Calcium 8.4 mg/dL (8.5-10.1); Potassium 3.8 mmol/L (3.5-5.1)
[2021-09-01 06:02] LABS: BUN/Creatinine Ratio 11.6
[2021-09-01 06:05] LABS: Bilirubin, Total 0.3 mg/dL (0.2-1.0); Total Protein 7.3 g/dL (6.4-8.2)
[2021-09-01 06:24] LABS: Urine Bacteria NONE SEEN /hpf (None Seen); Urine Blood Negative /uL (Negative); Urine Mucus MANY (None Seen); Urine Specific Gravity 1.038 (1.001-1.035)
[2021-09-01] MEDS ORDERED: CLIN300C8 PO (09:44)
[2021-09-01 09:46] VITALS: BP 129/81
== END 2021-09-01 09:55 | disposition home or self-care (01) ==
LOC: ER 01:38
DX: S31.102A Unspecified open wound of abdominal wall, epigastric region without penetration into peritoneal cavity, initial encounter (principal); Z90.49 Acquired absence of other specified parts of digestive tract; Z79.899 Other long term (current) drug therapy; Z79.1 Long term (current) use of non-steroidal anti-inflammatories (NSAID); Z79.2 Long term (current) use of antibiotics; Z88.0 Allergy status to penicillin; Z88.8 Allergy status to other drugs, medicaments and biological substances; X58.XXXA Exposure to other specified factors, initial encounter; Y93.89 Activity, other specified; Y92.89 Other specified places as the place of occurrence of the external cause; Y99.8 Other external cause status
CPT/HCPCS: 36415; 80053; 81001; 83605; 85025; 87040

== ENCOUNTER 2021-10-12 16:35 | Emergency (ER) | payer MEDICAID ==
[~2021-10-12] VITALS: Ht 182.9 cm; Wt 93.9 kg
[~2021-10-12 16:35] MED LIST changes: +CLIN300C8 PO
[2021-10-12 17:20] VITALS: BP 146/104
[2021-10-12 20:07] LABS: Basophils # (auto) 0.1 10 ^3/uL (0-0.2); Basophils % (auto) 0.8 % (0.0-2.0); Eosinophils # (auto) 0.3 10 ^3/uL (0-0.8); Eosinophils % (auto) 2.5 % (0.0-7.0); Hematocrit 47.8 % (41.0-53.0); Hemoglobin 15.6 g/dL (13.5-17.5); Lymphocytes # (auto) 2.1 10 ^3/uL (0.4-5.4); Lymphocytes % (auto) 18.6 % (10.0-50.0); Mean Corpuscular Hemoglobin 28.8 pg (28.0-32.0); Mean Corpuscular Hgb Conc. 32.6 g/dL (32.0-36.0); Mean Corpuscular Volume 88.4 fL (80.0-100.0); Monocytes # (auto) 1.1 10 ^3/uL (0-1.3); Neutrophils # (auto) 7.7 10 ^3/uL (1.6-8.6); Neutrophils % (auto) 68.1 % (37.0-80.0); Nucleated Red Blood Cells % 0.1 %; Red Blood Cells 5.41 10^6/uL (4.5-5.90); Red Cell Distribution Width 15.3 % (11.8-14.3); White Blood Cell 11.3 10^3/uL (4.4-10.8)
[2021-10-12 20:27] LABS: Potassium 4.1 mmol/L (3.5-5.1)
[2021-10-12 20:28] LABS: Albumin 3.3 g/dL (3.4-5.0); CRP High Sensitivity 0.15 mg/dL (< 0.3); Calcium 8.5 mg/dL (8.5-10.1)
[2021-10-12 20:31] LABS: BUN/Creatinine Ratio 12.9; Bilirubin, Total 0.3 mg/dL (0.2-1.0); Total Protein 7.8 g/dL (6.4-8.2)
== END 2021-10-12 23:50 | disposition left against medical advice (07) ==
LOC: ER 16:35
DX: L02.512 Cutaneous abscess of left hand (principal); J45.909 Unspecified asthma, uncomplicated; F17.210 Nicotine dependence, cigarettes, uncomplicated; Z90.49 Acquired absence of other specified parts of digestive tract; Z79.2 Long term (current) use of antibiotics; Z79.1 Long term (current) use of non-steroidal anti-inflammatories (NSAID); Z79.899 Other long term (current) drug therapy; Z88.0 Allergy status to penicillin; Z88.8 Allergy status to other drugs, medicaments and biological substances
CPT/HCPCS: 36415; 80053; 83605; 85025; 85652; 86141; 87040

== ENCOUNTER 2024-12-12 09:48 | Inpatient (IN) | payer MEDICAID ==
[~2024-12-12] VITALS: Ht 182.9 cm; Wt 130.0 kg
[~2024-12-12 09:48] MED LIST changes: +CLIN150C18 PO; -CLIN150C8 PO; +CLIN1CAP70 PO; -CLIN300C8 PO; +IBUP-1454 PO; -IBUP600T27 PO; -LEVO-28 PO; +LEVO500T91 PO
--- NOTE | 2024-12-12 10:29 | DVH ---
INDICATION: sob TECHNIQUE: Frontal view of the chest. COMPARISON: CHEST PORTABLE on DOS: 06/30/21, CT ANGIO CHEST CONTRAST on DOS: 05/13/21, CHEST PORTABLE o n DOS: 05/11/21 FINDINGS: . The heart and mediastinal contours are grossly unremarkable. There is no evidence of pleural disea se. The lungs are clear. The bony structures of the chest are intact without fracture. IMPRESSION: 1. No evidence of acute disease.
--- NOTE | 2024-12-12 10:32 | ED.PDOC ---
SOB-HPI HPI Comments This is a 54 year old male presenting to the ED with chief complaint of SOB. Patient reports that he has been experiencing SOB with associated cough for the past month, however, he started to have hemoptysis for the past 2 days. Patient notes he still smokes and he had ran out of his inhaler 3 days ago. Patient denies any chest pain, dizziness, fever, chills, or N/V. Chief Complaint: Shortness of Breath Time Seen by MD: 10:28 Primary Care Provider: HOLLY Staton notes: Nurses Notes, Medications, Allergies Information Source: Patient Mode of Arrival: Ambulatory Severity: Moderate Timing: Months Duration: Since onset Context: At Rest PE Risk Factors: None History of: Asthma Prehospital treatment: None Modifying Factors: Nothing Associated Signs and Symptoms: Cough, Hemoptysis If cough with SOB: Non-Productive Past Medical History PAST MEDICAL HISTORY: Asthma, Cancer, Liver Surgical History: Appendectomy, Cholecystectomy, Hernia Repair Family History Family History: No family hx of Cancer, No family hx of DM, No family hx of Heart haylie Social History Smoker: Cigarettes Alcohol: Denies ETOH Use Drugs: Methamphetamine Lives In: Home Constitutional: denies: chills, diaphoresis, fatigue, fever, malaise, sweats, weakness, others EENTM: denies: blurred vision, double vision, ear bleeding, ear discharge, ear drainage, ear pain, ear ringing, eye pain, eye redness, hearing loss, mouth pain, mouth swelling, nasal discharge, nose bleeding, nose congestion, nose pain, photophobia, tearing, throat pain, throat swelling, voice changes, others Respiratory: reports: cough, hemoptysis, shortness of breath; denies: orthopnea, SOB at rest, SOB with excertion, stridor, wheezing, others Cardiovascular: denies: chest pain, dizzy spells, diaphoresis, Dyspnea on exertion, edema, irregular heart beat, left arm pain, lightheadedness, palpitations, PND, syncope, others Gastrointestinal: denies: abdomen distended, abdominal pain, blood streaked bowels, constipated, diarrhea, dysphagia, difficulty swallowing, hematemesis, melena, nausea, poor appetite, poor fluid intake, rectal bleeding, rectal pain, vomiting, others Genitourinary: denies: burning, dysuria, flank pain, frequency, hematuria, incontinence, penile discharge, penile sore, pain, testicle pain, testicle swelling, urgency, others Neurological: denies: dizziness, fainting, headache, left sided numbness, left sided weakness, numbness, paresthesia, pre-existing deficit, right sided numbness, right sided weakness, seizure, speech problems, tingling, tremors, weakness, others Musculoskeletal: denies: back pain, gout, joint pain, joint swelling, muscle pain, muscle stiffness, neck pain, others Integumetry: denies: bruises, change in color, change in hair/nails, dryness, laceration, lesions, lumps, rash, wounds, others Allergic/Immunocompromised: denies: Difficulty Healing, Frequent Infections, Hives, Itching, others Hematologic/Lymphatic: denies: anemia, blood clots, easy bleeding, easy bruising, swollen glands, others Endocrine: denies: excessive hunger, excessive sweating, excessive thirst, excessive urination, flushing, intolerance to cold, intolerance to heat, unexplained weight gain, unexplained weight loss, others Psychiatric: denies: anxiety, bipolar disorder, depression, hopeless, panic disorder, schizophrenia, sleepless, suicidal, others All Other Systems: Reviewed and Negative Physical Exam General Appearance: Moderate Distress, Normal HEENT: Normal ENT Inspection, Pharynx Normal, TMs Normal Neck: Full Range of Motion, Non-Tender, Normal, Normal Inspection Respiratory: Chest Non-Tender, No Accessory Muscle Use, Other (Coarse breath sounds) Cardiovascular: No Edema, No JVD, No Murmur, No Gallop, Normal Peripheral Pulses, Regular Rate/Rhythm Breast Exam: Deferred Gastrointestinal: No Organomegaly, Non Tender, No Pulsatile Mass, Normal Bowel Sounds, Soft Genitalia: Deferred Pelvic: Deferred Rectal: Deferred Extremities: No calf tenderness, Normal capillary refill, Normal inspection, Normal range of motion, Non-tender, No pedal edema Musculoskeletal : Apperance: Normal Neurologic: Alert, religious education teacher II-XII nml as Tested, No Motor Deficits, Normal Affect, Normal Mood, No Sensory Deficits Cerebellar Function: Normal Reflexes: Normal Skin: Dry, Normal Color, Warm Lymphatic: No Adenopathy Was a procedure done? Was a procedure done?: No Differential Dx Differential Diagnosis: Anxiety, Asthma, Bronchitis, CHF, COPD, Pneumonia, Respiratory Distress X-Ray, Labs, Meds, VS Vital Signs Date Time Temp Pulse Resp B/P (MAP) Pulse Ox O2 Delivery O2 Flow Rate FiO2 12/12/24 10:49 97.8 77 18 147/75 (99) 94 97.8 12/12/24 10:49 77 18 94 Room Air 12/12/24 10:46 18 99 Room Air* 0 21 12/12/24 09:59 79 12/12/24 09:49 97.6 79 23 157/82 96 97.6 Lab Test 12/12/24 11:19 12/12/24 10:15 Range/Units Troponin I High Sensitivity 5 5 </=54 ng/L White Blood Count 9.4 4.4-10.8 10^3/uL Red Blood Count 5.15 4.5-5.90 10^6/uL Hemoglobin 16.0 13.5-17.5 g/dL Hematocrit 47.2 41.0-53.0 % Mean Corpuscular Volume 91.7 80.0-100.0 fL Mean Corpuscular Hemoglobin 31.1 28.0-32.0 pg Mean Corpuscular Hemoglobin Concent 33.9 32.0-36.0 g/dL Red Cell Distribution Width 14.9 H 11.8-14.3 % Platelet Count 269 140-450 10^3/uL Mean Platelet Volume 9.4 6.9-10.8 fL Neutrophils (%) (Auto) 63.6 37.0-80.0 % Lymphocytes (%) (Auto) 24.6 10.0-50.0 % Monocytes (%) (Auto) 8.1 0.0-12.0 % Eosinophils (%) (Auto) 2.9 0.0-7.0 % Basophils (%) (Auto) 0.8 0.0-2.0 % Neutrophils # (Auto) 6.0 1.6-8.6 10 ^3/uL Lymphocytes # (Auto) 2.3 0.4-5.4 10 ^3/uL Monocytes # (Auto) 0.8 0-1.3 10 ^3/uL Eosinophils # (Auto) 0.3 0-0.8 10 ^3/uL Basophils # (Auto) 0.1 0-0.2 10 ^3/uL Nucleated Red Blood Cells 0.3 % D-Dimer, Quantitative 0.52 H 0.0-0.49 mg/L FEU Sodium Level 141 136-145 mmol/L Potassium Level 4.5 3.5-5.1 mmol/L Chloride Level 110 H 98-107 mmol/L Carbon Dioxide Level 23 20-31 mmol/L Anion Gap 8 5-15 Blood Urea Nitrogen 6 L 9-23 mg/dL Creatinine 0.90 0.700-1.30 mg/dL Glomerular Filtration Rate Calc 101 >90 mL/min BUN/Creatinine Ratio 6.7 L 10.0-20.0 Serum Glucose 104 74-106 mg/dL Calcium Level 8.9 8.7-10.4 mg/dL Current Medications Medications (Trade) Dose Ordered Sig/Boone Route Start Time Stop Time Status Last Admin Albuterol (Ventolin Medneb) 5 mg ONCE ONCE NEB 12/12/24 10:30 12/12/24 10:31 DC 12/12/24 10:46 Ipratropium [place] (Atrovent Medneb) 0.5 mg ONCE ONCE NEB 12/12/24 10:30 12/12/24 10:31 DC 12/12/24 10:46 Methylprednisolone Sodium Succinate (Solu Medrol) 125 mg ONCE ONCE IV 12/12/24 10:30 12/12/24 10:32 DC 12/12/24 10:54 [place] [address] Ph: [phone] DIAGNOSTIC IMAGING Diagnostic Imaging Report : [id number] Signed PATIENT: CYNTHIA PANTOJA ACCT: [id number] UNIT: [id number] : 1970 LOC: ER ROOM / BED: / AGE / SEX: 54 / M ADM STATUS: REG ER SERVICE [id number] ORDERING PHYSICIAN: FAINA JOHN MD PROCEDURE(s): CXRP - CHEST PORTABLE REASON: sob ORDER NUMBER(s): [id number], ACCESSION NUMBER(s): [id number] INDICATION: sob TECHNIQUE: Frontal view of the chest. COMPARISON: CHEST PORTABLE on DOS: 06/30/21, CT ANGIO CHEST CONTRAST on DOS: 05/13/21, CHEST PORTABLE on DOS: 05/11/21 FINDINGS: . The heart and mediastinal contours are grossly unremarkable. There is no evidence of pleural disease. The lungs are clear. The bony structures of the chest are intact without fracture. IMPRESSION: 1. No evidence of acute disease. ATED BY: DEVAN CARLOS MD DICTATED DATE/TIME: 12/12/241026 SIGNED BY: DEVAN CARLOS MD SIGNED DATE/TIME: 12/12/24 102 CC: Patient alert. Complaining of shortness a breath. Has coarse breath sounds. Vitals stable. Was given steroid. Was given breathing treatment. D-dimer slightly elevated. WBC within normal limits. Cardiac marker within normal limits. Was given Lovenox. Explained to the patient. Continue monitoring. Time of 1ST Reevaluation: 11:28 Reevaluation 1ST: Unchanged Patient Education/Counseling: Diagnosis, Treatment Family Education/Counseling: No Family Present SEPSIS Sepsis Screen Date sepsis recognized/suspect: Dec 12, 2024 Time Sepsis recognized/suspect: 947 Recent Procedure: No On Antibiotic Therapy: No Respiratory Rate >20: Yes Heart Rate >90: No Temp<36 C (96.8 F) or >38.3 C: No SBP <90 or MAP <65 mmHG: No New Acute Mental Status Change: No Is the patient on CPAP, BIPAP,: No Physician Orders Chest Portable (12/12/24 09:58) Electrocardigram (12/12/24 10:12) Vital Signs Date Time Temp Pulse Resp B/P (MAP) Pulse Ox O2 Delivery O2 Flow Rate FiO2 12/12/24 10:49 97.8 77 18 147/75 (99) 94 97.8 12/12/24 10:49 77 18 94 Room Air 12/12/24 10:46 18 99 Room Air* 0 21 12/12/24 09:59 79 12/12/24 09:49 97.6 79 23 157/82 96 97.6 Laboratory Tests Test 12/12/24 10:15 White Blood Count 9.4 10^3/uL (4.4-10.8) Medications Medications Dose Ordered Sig/Boone Route Start Time Stop Time Status Last Admin Dose Admin Albuterol 5 mg ONCE ONCE NEB 12/12/24 10:30 12/12/24 10:31 DC 12/12/24 10:46 Ipratropium [place] 0.5 mg ONCE ONCE NEB 12/12/24 10:30 12/12/24 10:31 DC 12/12/24 10:46 Methylprednisolone Sodium Succinate 125 mg ONCE ONCE IV 12/12/24 10:30 12/12/24 10:32 DC 12/12/24 10:54 Departure 1 Departure Time of Disposition: 17:43 Impression: Primary Impression: Pneumonitis Disposition: ADMITTED INPATIENT Admit to: Med Surg Condition: Guarded Critical Care Note Critical Care Time?: Yes (90 min-critical care time only) Critical care comment: Elevated D-dimer Stability Stability form required: No Heart Score Heart Score: Heart Score Response (Comments) Value History N/A 0 EKG N/A 0 Age N/A 0 Risk Factors N/A 0 Troponin N/A 0 Total 0 I personally scribed for FAINA JOHN MD ([email or web address]) on 12/12/24 at 10:32. Electronically submitted by Willam Ernst ([email or web address]). I personally scribed for FAINA JOHN MD ([email or web address]) on 12/12/24 at 11:04. Electronically submitted by Willam Ernst ([email or web address]). FAINA JOHN MD Dec 12, 2024 10:32
[2024-12-12] MEDS: ALBUTEROL SULF 2.5 MG/0.5ML(0.5%) NEB SOLN NEB ONE ×2 (10:46→14:15)
[2024-12-12] MEDS: IPRATROPIUM BROM 0.5 MG/2.5ML INH SOL NEB ONE (10:46)
[2024-12-12] MEDS: methylPREDNISolone SOD SUCC 125 MG/2 ML VL IV ONE (10:54)
[2024-12-12 11:14] LABS: Hematocrit 47.2 % (41.0-53.0); Hemoglobin 16.0 g/dL (13.5-17.5); Mean Corpuscular Hemoglobin 31.1 pg (28.0-32.0); Mean Corpuscular Volume 91.7 fL (80.0-100.0); Nucleated Red Blood Cells % 0.3 %
[2024-12-12 11:16] LABS: Potassium 4.5 mmol/L (3.5-5.1); Sodium 141 mmol/L (136-145)
[2024-12-12 11:17] LABS: Anion Gap 8 (5-15); Carbon Dioxide 23 mmol/L (20-31); Chloride 110 mmol/L (98-107)
[2024-12-12 11:18] LABS: Calcium 8.9 mg/dL (8.7-10.4)
[2024-12-12 11:22] LABS: Glucose 104 mg/dL (74-106)
[2024-12-12 11:23] LABS: BUN/Creatinine Ratio 6.7 (10.0-20.0)
[2024-12-12 11:24] LABS: Blood Urea Nitrogen 6 mg/dL (9-23)
--- NOTE | 2024-12-12 13:22 | DVHHP2 ---
Admitting Diagnosis: Shortness of breath History of Present Illness 54 year old male is complaining of shortness of breath. He states he's also has had a cough for one month but two days ago he started experiencing hemoptysis. Patient reports he does smoke and has not had his inhaler for three days. While in the emergency department the patient was evaluated by the provider. Patient will be admitted for further evaluation and treatment. I discussed admission with the patient/family and is in agreement to treatment plan. Patient Family History: Diabetes mellitus FH: colon cancer Hypertension Allergies: Coded Allergies: Cephalexin (Unverified Allergy, Unknown, 01/01/14) Penicillins (Unverified Allergy, Unknown, 01/01/14) Home Meds Active Scripts Clindamycin Hcl (Clindamycin Hcl) 300 Mg Cap, 300 MG PO TID for 10 Days, #30 CAP Prov:JOSELITO MORELAND MD 09/01/21 Clindamycin Hcl (Clindamycin Hcl) 150 Mg Cap, 300 MG PO Q8HR for 7 Days, #42 CAP Prov:VARUN LEBRON DO 06/07/21 Ibuprofen (Ibuprofen) 600 Mg Tab, 1 TAB PO Q6HP PRN for 10 Days, #40 TAB For mild to moderate pain Prov:EDOUARD BURROUGHS MD 05/13/21 Levofloxacin Hemihydrate (LEVOFLOXACIN) 500 Mg Tab, 1 TAB PO DAILY, #7 TAB Prov:EDOUARD BURROUGHS MD 05/13/21 Hydrocodone-Acetaminophen (Hydrocodone Bitartrate/AC 5-325 mg) 1 Tab Tab, 1 TAB PO Q6HP PRN for 7 Days, #28 TAB For moderate to severe pain Prov:EDOUARD BURROUGHS MD 05/13/21 Zinc Sulfate (Zinc Sulfate) 220 Mg Tab, 220 MG PO DAILY for 30 Days, #30 TAB Prov:EDOUARD BURROUGHS MD 05/13/21 Cholecalciferol (Vitamin D3 Super Strength) 2,000 Unit Cap, 4000 UNIT PO DAILY for 30 Days, #60 CAP Prov:EDOUARD BURROUGHS MD 05/13/21 Ascorbic Acid (Gnp Vitamin C W/Abril Hips) 1,000 Mg Tab, 1000 MG PO DAILY for 30 Days, #30 TAB Prov:EDOUARD BURROUGHS MD 05/13/21 Reported Medications Albuterol Sulfate (VENTOLIN MDI) 90 Mcg Ih, 90 MCG IN Q6HPRN PRN for SHORTNESS OF BREATH 10/12/18 Current Medications Current Medications Medications (Trade) Dose Ordered Sig/Boone Route PRN Reason Start Time Stop Time Status Last Admin Sodium Chloride 1,000 ml @ 60 mls/hr [id number] IV 12/12/24 13:30 12/12/24 14:16 Acetaminophen/ Hydrocodone Bitart ([place] 5/325MG Tab) 1 tab Q4HP PRN PO MODERATE PAIN (4-6 PAIN SCALE) 12/12/24 13:30 Temazepam (Restoril) 15 mg QHSP PRN PO FOR INSOMNIA 12/12/24 13:30 Ondansetron HCl (Zofran) 4 mg Q4HP PRN IV NAUSEA / VOMITING 12/12/24 13:30 Zinc Sulfate 220 mg DAILY PO 12/13/24 10:00 Multivitamins (Mvi Tab) 1 tab DAILY PO 12/13/24 10:00 Acetaminophen (Tylenol Tablet) 650 mg Q6HP PRN PO PAIN SCALE 1-3 OR TEMP>100.4 12/12/24 13:30 Morphine Sulfate 2 mg Q4HPRN PRN IV SEVERE PAIN (7-10 PAIN SCALE) 12/12/24 13:30 Guaifenesin/ Dextromethorphan (Robitussin-Dm Liquid) 10 ml Q6HP PRN PO FOR COUGH 12/12/24 13:30 Azithromycin 250 ml @ 125 mls/hr DAILY IV 12/12/24 13:30 12/12/24 14:00 Losartan Potassium (Cozaar Tablet) 50 mg DAILY PO 12/13/24 10:00 Famotidine (Pepcid Tablet) 40 mg DAILY PO 12/13/24 10:00 Enoxaparin Sodium (Lovenox) 40 mg DAILY SC 12/13/24 10:00 Albuterol (Ventolin Medneb) 2.5 mg Q6HWA NEB 12/12/24 18:00 12/12/24 19:51 Review of Systems Shortness of breath cough hemoptysis Vital Signs Vital Signs Date Time Temp Pulse Resp B/P (MAP) Pulse Ox O2 Delivery O2 Flow Rate FiO2 12/12/24 19:57 94 20 100 12/12/24 19:51 Room Air 0.0 12/12/24 19:51 21 12/12/24 15:31 97.4 129/86 97.4 Physical Exam General Appearance: alert, no distress HEENT: EOMI, PERRLA, normal external inspect of ears, no icterus, no nasal drainage Neck: no carotid bruit, no jugular venous distention (JVD), no lymphadenopathy Chest: normal thorax Respiratory: clear to auscultation, normal air movement Cardiovascular: regular rate and rhythm, no diastolic murmur, no jugular venous distention (JVD), no rub, no systolic murmur Abdominal: soft, no hepatomegaly, no mass, no splenomegaly, no tenderness Musculoskeletal: no joint tenderness, no swelling Extremities: normal pulses, no calf tenderness, no clubbing, no cyanosis, no edema Skin: no bruising, no jaundice, no rash Neurological: alert, No focal deficit SEPSIS Sepsis Screen Date sepsis recognized/suspect: Dec 12, 2024 Time Sepsis recognized/suspect: 947 Recent Procedure: No On Antibiotic Therapy: No Respiratory Rate >20: Yes Heart Rate >90: No Temp<36 C (96.8 F) or >38.3 C: No SBP <90 or MAP <65 mmHG: No New Acute Mental Status Change: No Is the patient on CPAP, BIPAP,: No Physician Orders Chest Portable (12/12/24 09:58) Electrocardigram (12/12/24 10:12) Admit (12/12/24 13:17) Code Status (12/12/24 13:17) Sodium Chloride 0.9% (12/12/24 13:30) Oxygen Per Hour (12/12/24 13:17) Hydrocodone-Acet 5/325mg Tab ([place] 5/32 (12/12/24 13:30) Temazepam (Restoril) (12/12/24 13:30) Ondansetron Hcl (Zofran) (12/12/24 13:30) Zinc Sulfate (12/13/24 10:00) Multiple Vitamin Tablet (Mvi Tab) (12/13/24 10:00) Complete Blood Count (12/13/24 04:00) Comprehensive Metabolic Panel (12/13/24 04:00) Cardiac Diet-2gna,Lofat,Lochol (12/12/24 Lunch) Condition: Fair (12/12/24 13:17) Acetaminophen Tablet (Tylenol Tablet) (12/12/24 13:30) Morphine Sulfate Injection (12/12/24 13:30) Guaifenesin-Dextromet Liquid (Robitussin (12/12/24 13:30) Azithromycin 500mg/ 250ml (Zithromax 50 (12/12/24 13:30) Losartan Tablet (Cozaar Tablet) (12/13/24 10:00) Famotidine Tablet (Pepcid Tablet) (12/13/24 10:00) Enoxaparin Sodium (Lovenox) (12/13/24 10:00) Albuterol Medneb (Ventolin Medneb) (12/12/24 18:00) Ct Angio Chest Contrast (12/12/24 13:53) Vital Signs Date Time Temp Pulse Resp B/P (MAP) Pulse Ox O2 Delivery O2 Flow Rate FiO2 12/12/24 19:57 94 20 100 12/12/24 19:51 97 Room Air 0.0 12/12/24 19:51 97 Room Air* 0 21 12/12/24 19:51 93 20 97 12/12/24 15:31 97.4 64 18 129/86 97 0.0 97.4 12/12/24 15:18 78 18 97 12/12/24 15:12 95 Room Air 0.0 12/12/24 15:12 95 Room Air* 0 21 12/12/24 15:12 64 18 95 12/12/24 15:11 97.4 83 20 129/86 (100) 94 97.4 12/12/24 10:49 97.8 77 18 147/75 (99) 94 97.8 12/12/24 10:49 77 18 94 Room Air 12/12/24 10:46 18 99 Room Air* 0 21 12/12/24 09:59 79 12/12/24 09:49 97.6 79 23 157/82 96 97.6 Laboratory Tests Test 12/12/24 10:15 White Blood Count 9.4 10^3/uL (4.4-10.8) Medications Medications Dose Ordered Sig/Boone Route Start Time Stop Time Status Last Admin Dose Admin Albuterol 2.5 mg ONCE ONCE NEB 12/12/24 13:30 12/12/24 13:31 DC 12/12/24 15:12 Albuterol 2.5 mg Q6HWA NEB 12/12/24 18:00 12/12/24 19:51 Albuterol 5 mg ONCE ONCE NEB 12/12/24 10:30 12/12/24 10:31 DC 12/12/24 10:46 Azithromycin 250 ml @ 125 mls/hr DAILY IV 12/12/24 13:30 12/12/24 14:00 Ipratropium [place] 0.5 mg ONCE ONCE NEB 12/12/24 10:30 12/12/24 10:31 DC 12/12/24 10:46 Methylprednisolone Sodium Succinate 125 mg ONCE ONCE IV 12/12/24 10:30 12/12/24 10:32 DC 12/12/24 10:54 Sodium Chloride 1,000 ml @ 60 mls/hr [id number] IV 12/12/24 13:30 12/12/24 14:16 Results Labs Test 12/12/24 13:21 12/12/24 10:15 Range/Units Troponin I High Sensitivity < 3 L </=54 ng/L White Blood Count 9.4 4.4-10.8 10^3/uL Red Blood Count 5.15 4.5-5.90 10^6/uL Hemoglobin 16.0 13.5-17.5 g/dL Hematocrit 47.2 41.0-53.0 % Mean Corpuscular Volume 91.7 80.0-100.0 fL Mean Corpuscular Hemoglobin 31.1 28.0-32.0 pg Mean Corpuscular Hemoglobin Concent 33.9 32.0-36.0 g/dL Red Cell Distribution Width 14.9 H 11.8-14.3 % Platelet Count 269 140-450 10^3/uL Mean Platelet Volume 9.4 6.9-10.8 fL Neutrophils (%) (Auto) 63.6 37.0-80.0 % Lymphocytes (%) (Auto) 24.6 10.0-50.0 % Monocytes (%) (Auto) 8.1 0.0-12.0 % Eosinophils (%) (Auto) 2.9 0.0-7.0 % Basophils (%) (Auto) 0.8 0.0-2.0 % Neutrophils # (Auto) 6.0 1.6-8.6 10 ^3/uL Lymphocytes # (Auto) 2.3 0.4-5.4 10 ^3/uL Monocytes # (Auto) 0.8 0-1.3 10 ^3/uL Eosinophils # (Auto) 0.3 0-0.8 10 ^3/uL Basophils # (Auto) 0.1 0-0.2 10 ^3/uL Nucleated Red Blood Cells 0.3 % D-Dimer, Quantitative 0.52 H 0.0-0.49 mg/L FEU Sodium Level 141 136-145 mmol/L Potassium Level 4.5 3.5-5.1 mmol/L Chloride Level 110 H 98-107 mmol/L Carbon Dioxide Level 23 20-31 mmol/L Anion Gap 8 5-15 Blood Urea Nitrogen 6 L 9-23 mg/dL Creatinine 0.90 0.700-1.30 mg/dL Glomerular Filtration Rate Calc 101 >90 mL/min BUN/Creatinine Ratio 6.7 L 10.0-20.0 Serum Glucose 104 74-106 mg/dL Calcium Level 8.9 8.7-10.4 mg/dL Admitting Diagnosis: - Shortness of breath O2 as needed, monitoring -hemoptysis CTA to rule out PE, monitoring -Upper viral syndrome Cough medicine, monitoring - Morbid obesity Diet, exercise - Benign essential hypertension Cardiac diet, antihypertensives, monitoring - Elevated D-dimer Labs, monitoring Plan discussed with: Patient, Other ARABELLA NEWMAN NP Dec 12, 2024 13:22
[2024-12-12] MEDS ORDERED: HYDROcodone-ACET 5/325MG TAB PO PRN (13:30)
[2024-12-12] MEDS ORDERED: ACETAMINOPHEN 325 MG TAB PO PRN (13:30)
[2024-12-12] MEDS ORDERED: ONDANSETRON HCL 4 MG/2 ML VIAL IV PRN (13:30)
[2024-12-12] MEDS ORDERED: MORPHINE SULFATE INJ 2 MG/ml SYRG IV PRN (13:30)
[2024-12-12] MEDS: AZITHROMYCIN 500MG/ 250ML 250 ML IV SCH (14:00)
[2024-12-12] MEDS: IOHEXOL 350 MG/ML 100ML IJ ONE (14:15)
[2024-12-12] MEDS: SODIUM CHLORIDE 0.9% 1,000 ML IV SCH (14:16)
[2024-12-12 15:12] VITALS: PULSE 64; RESP 18; O2SAT 95
[2024-12-12 15:18] VITALS: PULSE 78; RESP 18; O2SAT 97
[2024-12-12 15:31] VITALS: BP 129/86; PULSE 64; RESP 18; TEMP 97.4; O2SAT 97
[2024-12-12 19:51] VITALS: PULSE 93; RESP 20; O2SAT 97
[2024-12-12] MEDS: ALBUTEROL SULF 2.5 MG/0.5ML(0.5%) NEB SOLN NEB SCH (19:51)
[2024-12-12 19:57] VITALS: PULSE 94; RESP 20; O2SAT 100
[2024-12-13] VITALS (13 sets, daily range): BP systolic 107–148; BP diastolic 65–85; PULSE 73–95; RESP 16–20; TEMP 96.9–98.6; O2SAT 93–98
[2024-12-13] MEDS: TEMAZEPAM 15 MG CAP PO PRN (02:28)
[2024-12-13] MEDS: ENOXAPARIN SOD 40 MG/0.4 ML SYRINGE SC SCH (09:05)
[2024-12-13] MEDS: FAMOTIDINE 20 MG TAB PO SCH (09:07)
[2024-12-13] MEDS: ZINC SULFATE 220mg CAP or TAB PO SCH (09:07)
[2024-12-13] MEDS: MULTIPLE VITAMIN TAB PO SCH (09:08)
[2024-12-13] MEDS: LOSARTAN POTASSIUM 50 MG TAB PO SCH (09:08)
[2024-12-13 09:19] LABS: Hematocrit 44.5 % (41.0-53.0); Hemoglobin 15.0 g/dL (13.5-17.5); Mean Corpuscular Hemoglobin 30.9 pg (28.0-32.0); Mean Corpuscular Volume 92.0 fL (80.0-100.0)
[2024-12-13 09:35] LABS: Albumin 4.1 g/dL (3.2-4.8); Alkaline Phosphatase 76 U/L (46-116); Anion Gap 8 (5-15); BUN/Creatinine Ratio 15.1 (10.0-20.0); Blood Urea Nitrogen 14 mg/dL (9-23); Calcium 9.0 mg/dL (8.7-10.4); Carbon Dioxide 26 mmol/L (20-31); Potassium 4.2 mmol/L (3.5-5.1); Sodium 142 mmol/L (136-145); Total Protein 6.3 g/dL (5.7-8.2)
[2024-12-13 10:12] LABS: Alanine Aminotransferase 62 U/L (7-40); Bilirubin, Total 0.2 mg/dL (0.2-1.0); Chloride 108 mmol/L (98-107); Glucose 122 mg/dL (74-106)
--- NOTE | 2024-12-13 11:56 | DVHPN2 ---
Progress Note - Dictate Date Seen: Dec 13, 2024 Medical Necessity Reason Pt with a Central, PICC or Fol: No vital signs Vital Sign Date Time Temp Pulse Resp B/P (MAP) Pulse Ox O2 Delivery O2 Flow Rate FiO2 12/13/24 11:46 90 20 98 12/13/24 11:40 Room Air* 0 21 12/13/24 09:08 138/79 12/13/24 09:00 98.1 98.1 Total Intake and Output 12/12/24 12/12/24 12/13/24 15:00 23:00 07:00 Intake Total 800 ml Output Total 500 ml Balance 300 ml medications Current Medications Medications Dose Ordered Sig/Boone Route Start Time Stop Time Status Last Admin Dose Admin Sodium Chloride 1,000 ml @ 60 mls/hr [id number] IV 12/12/24 13:30 12/13/24 06:10 60 MLS/HR Acetaminophen/ Hydrocodone Bitart 1 tab Q4HP PRN PO 12/12/24 13:30 Temazepam 15 mg QHSP PRN PO 12/12/24 13:30 12/13/24 02:28 15 MG Ondansetron HCl 4 mg Q4HP PRN IV 12/12/24 13:30 Zinc Sulfate 220 mg DAILY PO 12/13/24 10:00 12/13/24 09:07 220 MG Multivitamins 1 tab DAILY PO 12/13/24 10:00 12/13/24 09:08 1 TAB Acetaminophen 650 mg Q6HP PRN PO 12/12/24 13:30 Morphine Sulfate 2 mg Q4HPRN PRN IV 12/12/24 13:30 Guaifenesin/ Dextromethorphan 10 ml Q6HP PRN PO 12/12/24 13:30 Azithromycin 250 ml @ 125 mls/hr DAILY IV 12/12/24 13:30 12/13/24 09:08 125 MLS/HR Losartan Potassium 50 mg DAILY PO 12/13/24 10:00 12/13/24 09:08 50 MG Famotidine 40 mg DAILY PO 12/13/24 10:00 12/13/24 09:07 40 MG Enoxaparin Sodium 40 mg DAILY SC 12/13/24 10:00 Albuterol 2.5 mg Q6HWA NEB 12/12/24 18:00 12/13/24 11:42 2.5 MG objective General Appearance: alert, no distress HEENT: EOMI, PERRLA, normal external inspect of ears, no icterus, no nasal drainage Neck: no carotid bruit, no jugular venous distention (JVD), no lymphadenopathy Chest: normal thorax Respiratory: clear to auscultation, normal air movement Cardiovascular: regular rate and rhythm, no diastolic murmur, no jugular venous distention (JVD), no rub, no systolic murmur Abdominal: soft, no hepatomegaly, no mass, no splenomegaly, no tenderness Genitourinary: grossly normal external Musculoskeletal: no joint tenderness, no swelling Extremities: normal pulses, no calf tenderness, no clubbing, no cyanosis, no edema Skin: no bruising, no jaundice, no rash Neurological: alert, No focal deficit laboratory and microbiology Laboratory Tests 12/13/24 08:40 Test 12/13/24 08:40 Range/Units Serum Glucose 122 H 74-106 mg/dL Problem List - Shortness of breath O2 as needed, monitoring -hemoptysis CTA to rule out PE, monitoring -Upper viral syndrome Cough medicine, monitoring - Morbid obesity Diet, exercise - Benign essential hypertension Cardiac diet, antihypertensives, monitoring - Elevated D-dimer Labs, monitoring Assessment/Plan Subjective: Patient is awake and alert. Objective: Patient is somewhat agitated today. Patient states he told the RN he was recently released from correction however he did have a TB test and it was negative. 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 Plan: ID consult. Obtain QuantiFERON gold. Continue supplemental O2. Med-Neb treatments as needed. Plan discussed with: Patient, Other ARABELLA NEWMAN NP Dec 13, 2024 11:56
[2024-12-13 13:56] LABS: Total Cells Counted 100.0 (100)
--- NOTE | 2024-12-13 14:38 | DVHINCON2 ---
GI Consult Consult Note GI consult note Date of Consultation: 12/13/2024 Chief Complaint: Bloody sputum Referring Physician: PATY SOLO H&P: 54-year-old male admitted with complains of shortness of breath. Patient also complains of persistent cough for the past one month. Patient feels like his throat has been draw with all the coughing and has noticed slight amount of blood in his sputum. No abdominal pain. No nausea or vomiting. No history of GERD. Denies melena or red blood in stool. Status post EGD 2-3 years ago. Patient was last tested for TB April 2024 which was negative per patient Past Medical History: Asthma, liver Past Surgical History: Appendectomy, Cholecystectomy, Hernia Repair Social History: Smoker: Cigarettes Alcohol: Denies ETOH Use Drugs: Methamphetamine Lives In: Home Family History: Noncontributory Review of Systems: Constitutional: no fever, chill, weight loss HEENT: no eye pain, no hearing loss, no oral lesion, no scleral icterus Heart: no chest pain, no chest pressure Lung: + cough, + dyspnea with exertion Abdomen: see HPI Physical exam: General: NAD, AAOX3 Chest: lung cadena clear to auscultation Heart: RRR, no murmur Abdomen: non-distended, no tenderness to palpation, +BS Labs: Labs Test 12/13/24 08:40 12/12/24 13:21 12/12/24 10:15 Range/Units White Blood Count 26.8 #H 4.4-10.8 10^3/uL Red Blood Count 4.84 4.5-5.90 10^6/uL Hemoglobin 15.0 13.5-17.5 g/dL Hematocrit 44.5 41.0-53.0 % Mean Corpuscular Volume 92.0 80.0-100.0 fL Mean Corpuscular Hemoglobin 30.9 28.0-32.0 pg Mean Corpuscular Hemoglobin Concent 33.6 32.0-36.0 g/dL Red Cell Distribution Width 15.2 H 11.8-14.3 % Platelet Count 249 140-450 10^3/uL Mean Platelet Volume 9.0 6.9-10.8 fL Neutrophils (%) (Auto) 37.0-80.0 % Lymphocytes (%) (Auto) 10.0-50.0 % Monocytes (%) (Auto) 0.0-12.0 % Basophils (%) (Auto) 0.0-2.0 % Neutrophils # (Auto) 1.6-8.6 10 ^3/uL Lymphocytes # (Auto) 0.4-5.4 10 ^3/uL Monocytes # (Auto) 0-1.3 10 ^3/uL Differential Total Cells Counted 100.0 100 Neutrophils % (Manual) 88 H 37.0-80.0 Band Neutrophils % (Manual) 0 Lymphocytes % (Manual) 4 L 10.0-50.0 Monocytes % (Manual) 8 0-12 Eosinophils % (Manual) 0 0-7 Basophils % (Manual) 0 0.0-2.0 Metamyelocytes % (manual) 0 Myelocytes % (Manual) 0 Promyelocytes % (Manual) 0 Blast Cells % (Manual) 0 Reactive Lymphocytes 0 Platelet Estimate Adequate Sodium Level 142 136-145 mmol/L Potassium Level 4.2 3.5-5.1 mmol/L Chloride Level 108 H 98-107 mmol/L Carbon Dioxide Level 26 20-31 mmol/L Anion Gap 8 5-15 Blood Urea Nitrogen 14 9-23 mg/dL Creatinine 0.93 0.700-1.30 mg/dL Glomerular Filtration Rate Calc 98 >90 mL/min BUN/Creatinine Ratio 15.1 10.0-20.0 Serum Glucose 122 H 74-106 mg/dL Calcium Level 9.0 8.7-10.4 mg/dL Total Bilirubin 0.2 0.2-1.0 mg/dL Aspartate Amino Transferase (AST) 40 13-40 U/L Alanine Aminotransferase (ALT) 62 H 7-40 U/L Alkaline Phosphatase 76 46-116 U/L Total Protein 6.3 5.7-8.2 g/dL Albumin 4.1 3.2-4.8 g/dL Troponin I High Sensitivity < 3 L </=54 ng/L Eosinophils (%) (Auto) 2.9 0.0-7.0 % Eosinophils # (Auto) 0.3 0-0.8 10 ^3/uL Basophils # (Auto) 0.1 0-0.2 10 ^3/uL Nucleated Red Blood Cells 0.3 % D-Dimer, Quantitative 0.52 H 0.0-0.49 mg/L FEU Imaging: CXR IMPRESSION: 1. No evidence of acute disease. Assessment: Shortness of breath Hemoptysis Plan: Discussed with Dr. Nair Stool for occult blood Continue Pepcid CT angio chest pending Monitor lab Possible non GI source of bleeding Discussed plan with patient and RN Thank you for this consult Date of Service: Dec 13, 2024 Billing Provider: EMILEE TRINIDAD Common Visit Codes: CONSULT ONLY Consultation Codes: [id number] CONSULT <60MIN EMILEE TRINIDAD Dec 13, 2024 14:38
[2024-12-13 15:05] LABS: Hematocrit 44.5 % (41.0-53.0); Hemoglobin 14.7 g/dL (13.5-17.5); Mean Corpuscular Hemoglobin 30.4 pg (28.0-32.0); Mean Corpuscular Volume 92.1 fL (80.0-100.0); Nucleated Red Blood Cells % 0.1 %
[2024-12-13] MEDS ORDERED: IOHEXOL 350 MG/ML 100ML IJ ONE (15:10)
--- NOTE | 2024-12-13 18:19 | DVH ---
COMPUTERIZED TOMOGRAPHIC ANGIOGRAPHY OF THE CHEST WITH INTRAVENOUS CONTRAST REASON FOR EXAM: Shortness of breath COMPARISON: XY CHEST PORTABLE on DOS: 12/12/24, CHEST PORTABLE on DOS: 06/30/21, CT ANGIO CHEST CONTRAS T on DOS: 05/13/21, CHEST PORTABLE on DOS: 05/11/21 TECHNIQUE: The exam was performed on a multidetector spiral scanner. Spiral images were acquired fro m the thoracic inlet through the adrenal glands, during the bolus intravenous administration of cont rast. Multiplanar maximum intensity projection (MIP) images were provided. Radiation optimization: Al l CT scans at this facility use at least one of these dose optimization techniques: Automated exposur e control mA and/or kV adjustment per patient size (includes targeted exams where dose is matched to clinical indication) or iterative reconstruction. CONTRAST ADMINISTERED: 100 mL omnipaque 350 intravenously. RADIATION DOSE: CTDI: 29.13 mGy DLP: 1096.93 mGy-cm FINDINGS: There is mild platelike atelectasis in the right lower lobe. No pulmonary nodule or mass i s identified. There is no bronchiectasis or honeycombing. There is no pleural effusion. There is no pneumothorax. The heart is not enlarged. There is no pericardial effusion. There is no pulmonary ar terial filling defects as far as the subsegmental level to suggest pulmonary embolism. There is no th oracic aortic aneurysm. No pathologic lymphadenopathy is identified in the chest. No acute osseous ab normality is identified. IMPRESSION: No evidence of pulmonary embolism as far as the subsegmental level.
--- NOTE | 2024-12-13 19:11 | DVHINCON2 ---
Date of service: Dec 13, 2024 Referring Physician GERMANIA Newman Reason for Consultation Cough, hemoptysis. History of Present Illness This is a 54-year-old man with PMHx of asthma and liver cancer who presented to the ED on 09/11/24 with chief complaint of shortness of breath. Patient reported experiencing shortness of breath with associated cough for the past 1 month; however, had onset of hemoptysis 2 days prior to presentation. Patient notes he still smokes and has not had his inhaler for 3 days before presenting to ED. He denied any chest pain, dizziness, fever, chills, nausea, vomiting or other acute complaints. Patient was admitted for further care, and pulmonary consultation is requested for evaluation and management of cough and hemoptysis. Review of Systems: 14-point review of systems negative unless otherwise noted above. Past Medical History: Asthma, liver cancer Past Surgical History: Appendectomy, Cholecystectomy, Hernia Repair Medications: Reviewed. Allergies: Cephalexin Penicillins Family History: DM, hypertension, colon cancer. Social History: Smoker. No alcohol use. Positive methamphetamine use. Family History: Diabetes mellitus FH: colon cancer Hypertension Allergies: Coded Allergies: Cephalexin (Unverified Allergy, Unknown, 01/01/14) Penicillins (Unverified Allergy, Unknown, 01/01/14) Home Meds Active Scripts Albuterol Sulfate (Albuterol Sulfate Hfa) 108 Mcg/Act Aer, 108 MCG IN Q4HP PRN for 30 Days, #1 AER 2 puffs inhalation every 4 hrs as needed for shortness of breath Prov:ARABELLA NEWMAN NP 12/14/24 Levofloxacin Hemihydrate (LEVAQUIN 500 MG) 500 Mg Tab, 500 MG PO DAILY for 10 Days, #10 TAB Prov:ARABELLA NEWMAN NP 12/14/24 Clindamycin Hcl (Clindamycin Hcl) 300 Mg Cap, 300 MG PO TID for 10 Days, #30 CAP Prov:JOSELITO MORELAND MD 09/01/21 Clindamycin Hcl (Clindamycin Hcl) 150 Mg Cap, 300 MG PO Q8HR for 7 Days, #42 CAP Prov:VARUN LEBRON DO 06/07/21 Ibuprofen (Ibuprofen) 600 Mg Tab, 1 TAB PO Q6HP PRN for 10 Days, #40 TAB For mild to moderate pain Prov:EDOUARD BURROUGHS MD 05/13/21 Hydrocodone-Acetaminophen (Hydrocodone Bitartrate/AC 5-325 mg) 1 Tab Tab, 1 TAB PO Q6HP PRN for 7 Days, #28 TAB For moderate to severe pain Prov:EDOUARD BURROUGHS MD 05/13/21 Zinc Sulfate (Zinc Sulfate) 220 Mg Tab, 220 MG PO DAILY for 30 Days, #30 TAB Prov:EDOUARD BURROUGHS MD 05/13/21 Cholecalciferol (Vitamin D3 Super Strength) 2,000 Unit Cap, 4000 UNIT PO DAILY for 30 Days, #60 CAP Prov:EDOUARD BURROUGHS MD 05/13/21 Ascorbic Acid (Gnp Vitamin C W/Abril Hips) 1,000 Mg Tab, 1000 MG PO DAILY for 30 Days, #30 TAB Prov:EDOUARD BURROUGHS MD 05/13/21 Reported Medications Albuterol Sulfate (VENTOLIN MDI) 90 Mcg Ih, 90 MCG IN Q6HPRN PRN for SHORTNESS OF BREATH 10/12/18 Discontinued Scripts Levofloxacin Hemihydrate (LEVOFLOXACIN) 500 Mg Tab, 1 TAB PO DAILY, #7 TAB Prov:EDOUARD BURROUGHS MD 05/13/21 Current Medications Current Medications Medications (Trade) Dose Ordered Sig/Boone Route PRN Reason Start Time Stop Time Status Last Admin Zinc Sulfate 220 mg DAILY PO 12/13/24 10:00 12/13/24 09:07 Multivitamins (Mvi Tab) 1 tab DAILY PO 12/13/24 10:00 12/13/24 09:08 Losartan Potassium (Cozaar Tablet) 50 mg DAILY PO 12/13/24 10:00 12/13/24 09:08 Famotidine (Pepcid Tablet) 40 mg DAILY PO 12/13/24 10:00 12/13/24 09:07 Enoxaparin Sodium (Lovenox) 40 mg DAILY SC 12/13/24 10:00 Vital Signs Vital Signs Date Time Temp Pulse Resp B/P (MAP) Pulse Ox O2 Delivery O2 Flow Rate FiO2 12/13/24 17:30 98.0 78 17 107/65 (79) 96 98.0 12/13/24 11:40 Room Air* 0 21 Physical Exam Gen.: Patient lying in bed in no apparent distress. Breathing on room air. Head: Normocephalic, atraumatic. Eyes: EOMI/PERRLA. Ears: Normal hearing. Normal anatomy. Neck/trachea: Trachea midline, supple. Nose: Normal external anatomy. Mouth: Moist mucous membranes. Chest: Decreased air entry bilaterally. Positive wheezing, rhonchi. Cardiovascular: Positive S1, positive S2. Regular rate and rhythm. Abdomen: Positive bowel sounds in all 4 quadrants. Soft, non-tender, non- distended. : Deferred. Rectal: Deferred. Skin: Warm, dry. Intact. Extremities: 2+ radial pulses bilaterally. No lower extremity edema. Neuro: Awake, alert, oriented x3. No gross motor or sensory deficits. Cranial nerves II through XII intact. Gait not assessed. Labs/Diagnostic Data Labs Test 12/13/24 14:42 12/13/24 08:40 12/12/24 13:21 12/12/24 10:15 Range/Units White Blood Count 22.9 H 4.4-10.8 10^3/uL Red Blood Count 4.83 4.5-5.90 10^6/uL Hemoglobin 14.7 13.5-17.5 g/dL Hematocrit 44.5 41.0-53.0 % Mean Corpuscular Volume 92.1 80.0-100.0 fL Mean Corpuscular Hemoglobin 30.4 28.0-32.0 pg Mean Corpuscular Hemoglobin Concent 33.0 32.0-36.0 g/dL Red Cell Distribution Width 15.3 H 11.8-14.3 % Platelet Count 238 140-450 10^3/uL Mean Platelet Volume 8.8 6.9-10.8 fL Neutrophils (%) (Auto) 80.0 37.0-80.0 % Lymphocytes (%) (Auto) 13.2 10.0-50.0 % Monocytes (%) (Auto) 6.3 0.0-12.0 % Eosinophils (%) (Auto) 0.3 0.0-7.0 % Basophils (%) (Auto) 0.2 0.0-2.0 % Neutrophils # (Auto) 18.3 H 1.6-8.6 10 ^3/uL Lymphocytes # (Auto) 3.0 0.4-5.4 10 ^3/uL Monocytes # (Auto) 1.4 H 0-1.3 10 ^3/uL Eosinophils # (Auto) 0.1 0-0.8 10 ^3/uL Basophils # (Auto) 0.1 0-0.2 10 ^3/uL Nucleated Red Blood Cells 0.1 % HIV (1&2) Antibody Negative Negative Differential Total Cells Counted 100.0 100 Neutrophils % (Manual) 88 H 37.0-80.0 Band Neutrophils % (Manual) 0 Lymphocytes % (Manual) 4 L 10.0-50.0 Monocytes % (Manual) 8 0-12 Eosinophils % (Manual) 0 0-7 Basophils % (Manual) 0 0.0-2.0 Metamyelocytes % (manual) 0 Myelocytes % (Manual) 0 Promyelocytes % (Manual) 0 Blast Cells % (Manual) 0 Reactive Lymphocytes 0 Platelet Estimate Adequate Sodium Level 142 136-145 mmol/L Potassium Level 4.2 3.5-5.1 mmol/L Chloride Level 108 H 98-107 mmol/L Carbon Dioxide Level 26 20-31 mmol/L Anion Gap 8 5-15 Blood Urea Nitrogen 14 9-23 mg/dL Creatinine 0.93 0.700-1.30 mg/dL Glomerular Filtration Rate Calc 98 >90 mL/min BUN/Creatinine Ratio 15.1 10.0-20.0 Serum Glucose 122 H 74-106 mg/dL Calcium Level 9.0 8.7-10.4 mg/dL Total Bilirubin 0.2 0.2-1.0 mg/dL Aspartate Amino Transferase (AST) 40 13-40 U/L Alanine Aminotransferase (ALT) 62 H 7-40 U/L Alkaline Phosphatase 76 46-116 U/L Total Protein 6.3 5.7-8.2 g/dL Albumin 4.1 3.2-4.8 g/dL Troponin I High Sensitivity < 3 L </=54 ng/L D-Dimer, Quantitative 0.52 H 0.0-0.49 mg/L FEU Assessment Impression: Hemoptysis Cough Nicotine dependence Obesity Rule out HIV. Plan: Supplemental oxygen PRN Titrate to keep O2 sats above 92%. Patient with history of incarceration. Continue antibiotics Follow up sputum culture Antitussive for cough Follow up CT chest for further evaluation. Follow up QuantiFERON test results. Specimen cup at bedside to quantify hemoptysis. Monitor renal function. Monitor electrolytes. Supplement as necessary. Smoking cessation discussed greater than 10 minutes Diet and lifestyle modifications for weight reduction Obesity - complicates all care GI/DVT prophylaxis. Prognosis: Poor given patient's multiple co-morbidities. Rest of plan per hospitalist and other consultants. Thank you, GERMANIA Newman, for allowing me to participate in this patient's care. Further recommendations will depend on the patient's clinical course. Please do not hesitate to contact me if you have any questions or concerns. This medical document was created using an electronic medical record system with [employer] dictation system. Although these documentations are being carefully reviewed, there may still be some phonetic and typographical changes. The errors are purely typographical, due to imperfection on the software program, and do not reflect any compromise in the patient's medical care. Plan discussed with: Patient, Other (ESTUARDO Suarez/GERMANIA Newman/) SARITA BAKER MD Dec 13, 2024 19:11
[2024-12-14] VITALS (9 sets, daily range): BP systolic 120–138; BP diastolic 58–84; PULSE 68–80; RESP 16–20; TEMP 96.7–97.9; O2SAT 93–99
[2024-12-14] MEDS: guaiFENesin-DM 100/10mg/5ml SYR PO PRN (04:43)
[2024-12-14] MEDS ORDERED: ALBUTEROL SULF 2.5 MG/0.5ML(0.5%) NEB SOLN NEB PRN (06:15)
--- NOTE | 2024-12-14 12:45 | DVHDS2 ---
Discharge Summary Date of Admission Dec 12, 2024 at 13:17 Date of Discharge: Dec 14, 2024 Labs/Diagnostic Data: Laboratory Results Test 12/14/24 07:50 12/13/24 14:42 12/13/24 08:40 12/12/24 13:21 Miscellaneous Referred Test (Refrg) Sent to [facility] White Blood Count 22.9 10^3/uL (4.4-10.8) Red Blood Count 4.83 10^6/uL (4.5-5.90) Hemoglobin 14.7 g/dL (13.5-17.5) Hematocrit 44.5 % (41.0-53.0) Mean Corpuscular Volume 92.1 fL (80.0-100.0) Mean Corpuscular Hemoglobin 30.4 pg (28.0-32.0) Mean Corpuscular Hemoglobin Concent 33.0 g/dL (32.0-36.0) Red Cell Distribution Width 15.3 % (11.8-14.3) Platelet Count 238 10^3/uL (140-450) Mean Platelet Volume 8.8 fL (6.9-10.8) Neutrophils (%) (Auto) 80.0 % (37.0-80.0) Lymphocytes (%) (Auto) 13.2 % (10.0-50.0) Monocytes (%) (Auto) 6.3 % (0.0-12.0) Eosinophils (%) (Auto) 0.3 % (0.0-7.0) Basophils (%) (Auto) 0.2 % (0.0-2.0) Neutrophils # (Auto) 18.3 10 ^3/uL (1.6-8.6) Lymphocytes # (Auto) 3.0 10 ^3/uL (0.4-5.4) Monocytes # (Auto) 1.4 10 ^3/uL (0-1.3) Eosinophils # (Auto) 0.1 10 ^3/uL (0-0.8) Basophils # (Auto) 0.1 10 ^3/uL (0-0.2) Nucleated Red Blood Cells 0.1 % HIV (1&2) Antibody Negative (Negative) Differential Total Cells Counted 100.0 (100) Neutrophils % (Manual) 88 (37.0-80.0) Band Neutrophils % (Manual) 0 Lymphocytes % (Manual) 4 (10.0-50.0) Monocytes % (Manual) 8 (0-12) Eosinophils % (Manual) 0 (0-7) Basophils % (Manual) 0 (0.0-2.0) Metamyelocytes % (manual) 0 Myelocytes % (Manual) 0 Promyelocytes % (Manual) 0 Blast Cells % (Manual) 0 Reactive Lymphocytes 0 Platelet Estimate Adequate Sodium Level 142 mmol/L (136-145) Potassium Level 4.2 mmol/L (3.5-5.1) Chloride Level 108 mmol/L (98-107) Carbon Dioxide Level 26 mmol/L (20-31) Anion Gap 8 (5-15) Blood Urea Nitrogen 14 mg/dL (9-23) Creatinine 0.93 mg/dL (0.700-1.30) Glomerular Filtration Rate Calc 98 mL/min (>90) BUN/Creatinine Ratio 15.1 (10.0-20.0) Serum Glucose 122 mg/dL (74-106) Calcium Level 9.0 mg/dL (8.7-10.4) Total Bilirubin 0.2 mg/dL (0.2-1.0) Aspartate Amino Transferase (AST) 40 U/L (13-40) Alanine Aminotransferase (ALT) 62 U/L (7-40) Alkaline Phosphatase 76 U/L (46-116) Total Protein 6.3 g/dL (5.7-8.2) Albumin 4.1 g/dL (3.2-4.8) Troponin I High Sensitivity < 3 ng/L (</=54) Test 12/12/24 10:15 D-Dimer, Quantitative 0.52 mg/L FEU (0.0-0.49) Other Laboratory Tests 12/13/24 14:42 12/13/24 08:40 Brief Hx & Hospital Course: 54 year old male is complaining of shortness of breath. He states he's also has had a cough for one month but two days ago he started experiencing hemoptysis. Patient reports he does smoke and has not had his inhaler for three days. Patient was admitted December 10, 2024 for shortness of breath related to upper viral syndrome. Patient had complaints of being sick for the past month. Patient most likely had a secondary bacterial infection to his lungs. Patient has hemoptysis coughing for extended period of time. Patient reported that he was recently discharged from prison after starting a 27-year sentence. States he did have a TB test that was negative. After some confusion the staff reportedly thought he was positive for TB. Patient will follow-up with his PCP in 1 week and follow-up with monitor TB test results. He was given a prescription for Levaquin and an albuterol inhaler. There were no complaints or new complaints upon discharge, all questions and concerns were answered. Patient was advised to return to the ER or call 911 if any headaches, dizziness, shortness of breath, chest pain, bleeding, fevers, or worsening of medical condition. Patient/Family was counseled about treatment plan, medications, possible side effects, patient verbalized understanding. All questions were answered to the best of my ability. The patient symptoms improved and they are okay to be DC. Condition at Discharge: Stable Final Diagnosis/Problems List - Shortness of breath -hemoptysis -Upper viral syndrome - Morbid obesity - Benign essential hypertension - Elevated D-dimer Discharge Disposition: Home Discharge Instruct/Medications Scheduled Ascorbic Acid (Gnp Vitamin C W/Abril Hips), 1,000 MG PO DAILY Cholecalciferol (Vitamin D3 Super Strength), 4,000 UNIT PO DAILY Clindamycin Hcl (Clindamycin Hcl), 300 MG PO Q8HR Clindamycin Hcl (Clindamycin Hcl), 300 MG PO TID Levofloxacin Hemihydrate (Levaquin 500 Mg), 500 MG PO DAILY Zinc Sulfate (Zinc Sulfate), 220 MG PO DAILY Scheduled PRN Albuterol Sulfate (Ventolin Mdi), 90 MCG IN Q6HPRN PRN for SHORTNESS OF BREATH, (Reported) Albuterol Sulfate (Albuterol Sulfate Hfa), 108 MCG IN Q4HP PRN Hydrocodone-Acetaminophen (Hydrocodone Bitartrate/AC 5-325 mg), 1 TAB PO Q6HP PRN Ibuprofen (Ibuprofen), 1 TAB PO Q6HP PRN Discontinued Medications Levofloxacin Hemihydrate (Levofloxacin), 1 TAB PO DAILY Discharge Statement: "Patient was advised to return to the ER or call 911 if any headaches, dizziness, shortness of breath, chest pain, abdominal pain, bleeding, fevers, or worsening of medical condition. Patient was counseled about treatment plan, medications, possible side effects, patientverbalized understanding. All questions were answered to the best of my ability. This discharge took greater then 30 minutes in planning, reviewing documentation, counseling the patient, and discussing with other team members." ASSESSMENT ASSESSMENT Assessment ARABELLA NEWMAN NP Dec 14, 2024 12:45
[2024-12-14] MEDS ORDERED: LEVO500T91 PO (12:47)
[2024-12-14] MEDS ORDERED: ALBU108A5 IN (12:47)
--- NOTE | 2024-12-14 13:56 | DVHPN2 ---
Progress Note - Dictate Date Seen: Dec 14, 2024 Medical Necessity Reason Pt with a Central, PICC or Fol: No Subjective No new symptoms Out of bed to chair No episodes of GI bleeding vital signs Vital Sign Date Time Temp Pulse Resp B/P (MAP) Pulse Ox O2 Delivery O2 Flow Rate FiO2 12/14/24 13:23 97.9 80 16 93 12/14/24 11:36 Room Air* 0 21 21 12/14/24 09:13 138/84 Total Intake and Output 12/13/24 12/13/24 12/14/24 15:00 23:00 07:00 Intake Total 1027 ml 550 ml Balance 1027 ml 550 ml medications Current Medications Medications Dose Ordered Sig/Boone Route Start Time Stop Time Status Last Admin Dose Admin Sodium Chloride 1,000 ml @ 60 mls/hr [id number] IV 12/12/24 13:30 12/13/24 06:10 60 MLS/HR Acetaminophen/ Hydrocodone Bitart 1 tab Q4HP PRN PO 12/12/24 13:30 Temazepam 15 mg QHSP PRN PO 12/12/24 13:30 12/13/24 20:28 15 MG Ondansetron HCl 4 mg Q4HP PRN IV 12/12/24 13:30 Zinc Sulfate 220 mg DAILY PO 12/13/24 10:00 12/14/24 09:13 220 MG Multivitamins 1 tab DAILY PO 12/13/24 10:00 12/14/24 09:13 1 TAB Acetaminophen 650 mg Q6HP PRN PO 12/12/24 13:30 Morphine Sulfate 2 mg Q4HPRN PRN IV 12/12/24 13:30 Guaifenesin/ Dextromethorphan 10 ml Q6HP PRN PO 12/12/24 13:30 12/14/24 13:19 10 ML Azithromycin 250 ml @ 125 mls/hr DAILY IV 12/12/24 13:30 12/14/24 09:13 125 MLS/HR Losartan Potassium 50 mg DAILY PO 12/13/24 10:00 12/14/24 09:13 50 MG Famotidine 40 mg DAILY PO 12/13/24 10:00 12/14/24 09:13 40 MG Enoxaparin Sodium 40 mg DAILY SC 12/13/24 10:00 Albuterol 2.5 mg Q6HWA NEB 12/12/24 18:00 12/14/24 11:35 2.5 MG Albuterol 2.[address] [facility] 12/14/24 06:15 objective General: NAD, AAOX3 Chest: lung cadena clear to auscultation Heart: RRR, no murmur Abdomen: non-distended, no tenderness to palpation, +BS laboratory and microbiology Laboratory Tests 12/13/24 14:42 12/13/24 08:40 Test 12/13/24 08:40 Range/Units Serum Glucose 122 H 74-106 mg/dL Problems(with codes): (1) Hemoptysis (2) Cough (3) Acute bronchitis Prognosis Plan No acute GI issues Maintained on Protonix 40 mg p.o. daily Avoid aspirin and NSAIDs Pulmonary consult appreciated Discharge planning is in progress No further GI workup at this time Patient can follow up with GI Services as an outpatient for elective panendoscopy once medically stabilized Plan discussed with: Patient, Other (Franci Mccormackdy) KELVIN OLIVEIRA MD Dec 14, 2024 13:56
--- NOTE | 2024-12-14 22:48 | DVHPN2 ---
Progress Note - Dictate Date Seen: Dec 14, 2024 Medical Necessity Reason Pt with a Central, PICC or Fol: No Subjective Patient seen and examined at bedside. Breathing comfortably on room air. Overnight events reviewed. vital signs Vital Sign Date Time Temp Pulse Resp B/P (MAP) Pulse Ox O2 Delivery O2 Flow Rate FiO2 12/14/24 13:23 97.9 80 16 93 12/14/24 13:00 120/58 (78) 12/14/24 11:36 Room Air* 0 21 21 Total Intake and Output 12/13/24 12/13/24 12/14/24 15:00 23:00 07:00 Intake Total 1027 ml 550 ml Balance 1027 ml 550 ml objective Gen.: Patient lying in bed in no apparent distress. Breathing on room air. Head: Normocephalic, atraumatic. Eyes: EOMI/PERRLA. Ears: Normal hearing. Normal anatomy. Neck/trachea: Trachea midline, supple. Nose: Normal external anatomy. Mouth: Moist mucous membranes. Chest: Decreased air entry bilaterally. Positive wheezing, rhonchi. Cardiovascular: Positive S1, positive S2. Regular rate and rhythm. Abdomen: Positive bowel sounds in all 4 quadrants. Soft, non-tender, non- distended. : Deferred. Rectal: Deferred. Skin: Warm, dry. Intact. Extremities: 2+ radial pulses bilaterally. No lower extremity edema. Neuro: Awake, alert, oriented x3. No gross motor or sensory deficits. Cranial nerves II through XII intact. Gait not assessed. laboratory and microbiology Laboratory Tests 12/13/24 14:42 12/13/24 08:40 Test 12/13/24 08:40 Range/Units Serum Glucose 122 H 74-106 mg/dL Assessment/Plan Impression: Hemoptysis Cough Nicotine dependence Obesity Rule out HIV. Events: Breathing on room air Supplemental oxygen PRN Continue bronchodilators - pt with wheezing/rhonchi Antitussive for cough Continue antibiotics CT chest reviewed, no cavitation lesion. Hemoptysis likely due to capillary burst. Patient is stable for discharge from the pulmonary standpoint. Disposition per hospitalist. Follow up QuantiFERON as outpatient. Labs and imaging reviewed. Rest of plan as noted below. Plan: Supplemental oxygen PRN Titrate to keep O2 sats above 92%. Patient with history of incarceration. Continue antibiotics Follow up sputum culture Antitussive for cough Follow up QuantiFERON test results. Specimen cup at bedside to quantify hemoptysis. Monitor renal function. Monitor electrolytes. Supplement as necessary. Smoking cessation discussed greater than 10 minutes Diet and lifestyle modifications for weight reduction Obesity - complicates all care GI/DVT prophylaxis. Prognosis: Guarded given patient's multiple co-morbidities. Rest of plan per hospitalist and other consultants. Thank you, GERMANIA Box, for allowing me to participate in this patient's care. Further recommendations will depend on the patient's clinical course. Please do not hesitate to contact me if you have any questions or concerns. This medical document was created using an electronic medical record system with [employer] computerized dictation system. Although these documentations are being carefully reviewed, there may still be some phonetic and typographical changes. The errors are purely typographical, due to imperfection on the software program, and do not reflect any compromise in the patient's medical care. Plan discussed with: Patient, Other (ESTUARDO Worrell) SARITA BAKER MD Dec 14, 2024 22:48
--- NOTE | 2024-12-15 10:58 | ECG ---
[facility] Test Date: 2024-12-12 Test Time: 09:59:45 Pat Name: CYNTHIA PANTOJA Department: ED Room: 0282 A Gender: M Safety Technician: napoleon : 1970 Requested By: FAINA JOHN Order Number: [id number] Reading MD: John Kemp Measurements Intervals [place] Rate: 79 P: 55 TX: 145 QRS: 25 QRSD: 96 T: 68 QT: 379 QTc: 435 Interpretive Statements Sinus rhythm Low voltage, precordial leads Abnormal R-wave progression, early transition Borderline ST depression, anterolateral leads ST elevation, consider inferior injury Baseline wander in lead(s) I,II,aVR,V4 Electronically Signed On 12-15-2024 13:11:17 PDT by John Kemp Please click the below link to view image of tracing.
== END 2024-12-14 15:20 | disposition home or self-care (01) | DRG 723 ==
LOC: ER 09:48 → OVERFLOW 13:17 → WEST WING 12-13 01:56
PROVIDERS: ADMIT Nurse Practitioner; ATTEND Nurse Practitioner
PROC: 05HF33Z Insertion of Infusion Device into Left Cephalic Vein, Percutaneous Approach (ICD-10-PCS; principal; 2024-12-13)
PROC: B54NZZA Ultrasonography of Left Upper Extremity Veins, Guidance (ICD-10-PCS; 2024-12-13)
DX: B34.9 Viral infection, unspecified (principal); R04.2 Hemoptysis; E66.01 Morbid (severe) obesity due to excess calories; F17.210 Nicotine dependence, cigarettes, uncomplicated; I10 Essential (primary) hypertension; J98.4 Other disorders of lung; J45.909 Unspecified asthma, uncomplicated; Z80.0 Family history of malignant neoplasm of digestive organs; Z82.49 Family history of ischemic heart disease and other diseases of the circulatory system; Z83.3 Family history of diabetes mellitus; Z85.05 Personal history of malignant neoplasm of liver; Z88.0 Allergy status to penicillin; Z88.1 Allergy status to other antibiotic agents; Z79.899 Other long term (current) drug therapy; Z90.49 Acquired absence of other specified parts of digestive tract; Z68.38 Body mass index [BMI] 38.0-38.9, adult
CPT/HCPCS: 36415; 71045; 71275; 80048; 80053; 84484; 85007; 85025; 85027; 85379; 86703; 87556; 93005; 94640; 96374; 99291; 99292; G0378

== ENCOUNTER 2024-12-25 11:44 | Inpatient (IN) | payer MEDICAID ==
[~2024-12-25] VITALS: Ht 182.9 cm; Wt 136.5 kg
[~2024-12-25 11:44] MED LIST changes: +ALBU108A5 IN
--- NOTE | 2024-12-25 11:52 | ECG ---
[facility] Test Date: 2024-12-25 Test Time: 11:51:48 Pat Name: CYNTHIA PANTOJA Department: ED Room: [address] [place] [address] Gender: M Food Analyst: jaden : 1970 Requested By: FAINA JOHN Order Number: [id number] Reading MD: John Kemp Measurements Intervals [place] Rate: 94 P: 48 OR: 155 QRS: 18 QRSD: 83 T: 61 QT: 333 QTc: 417 Interpretive Statements Sinus rhythm Abnormal R-wave progression, early transition Electronically Signed On 12-26-2024 14:27:24 PDT by John Kemp Please click the below link to view image of tracing.
[2024-12-25] MEDS ORDERED: ALBUTEROL SULF 2.5 MG/0.5ML(0.5%) NEB SOLN NEB ONE (12:15)
[2024-12-25] MEDS: SODIUM CHLORIDE 0.9% 1,000 ML IV ONE (12:15)
--- NOTE | 2024-12-25 12:18 | ED.PDOC ---
SOB-HPI HPI Comments 54-year-old male with PMHx Asthma presents with a chief complaint of SOB and cough. Patient states that he was admitted to the hospital for 2 days about 12 days ago for the same chief complaint. Patient mentions that he was treated with antibiotics and given an inhaler for relief, but states that the antibiotics "made me feel worse". Patient has a non-productive cough. Chief Complaint: Shortness of Breath Time Seen by MD: 12:14 Primary Care Provider: HOLLY Staton notes: Medications, Allergies Information Source: Patient Mode of Arrival: Ambulatory Severity: Moderate Timing: Days Duration: Intermittent Context: At Rest PE Risk Factors: None History of: Asthma Prehospital treatment: None Modifying Factors: Exertion, Inhaler Associated Signs and Symptoms: Cough If cough with SOB: Non-Productive Past Medical History PAST MEDICAL HISTORY: Asthma, Cancer, Liver Surgical History: Appendectomy, Cholecystectomy, Hernia Repair Family History Family History: No family hx of Cancer, No family hx of DM, No family hx of Heart haylie Social History Smoker: Cigarettes Alcohol: Denies ETOH Use Drugs: Methamphetamine Lives In: Home Constitutional: denies: chills, diaphoresis, fatigue, fever, malaise, sweats, weakness, others EENTM: denies: blurred vision, double vision, ear bleeding, ear discharge, ear drainage, ear pain, ear ringing, eye pain, eye redness, hearing loss, mouth pain, mouth swelling, nasal discharge, nose bleeding, nose congestion, nose pain, photophobia, tearing, throat pain, throat swelling, voice changes, others Respiratory: reports: cough, shortness of breath; denies: hemoptysis, orthopnea, SOB at rest, SOB with excertion, stridor, wheezing, others Cardiovascular: denies: chest pain, dizzy spells, diaphoresis, Dyspnea on exertion, edema, irregular heart beat, left arm pain, lightheadedness, palpitations, PND, syncope, others Gastrointestinal: denies: abdomen distended, abdominal pain, blood streaked bowels, constipated, diarrhea, dysphagia, difficulty swallowing, hematemesis, melena, nausea, poor appetite, poor fluid intake, rectal bleeding, rectal pain, vomiting, others Genitourinary: denies: burning, dysuria, flank pain, frequency, hematuria, incontinence, penile discharge, penile sore, pain, testicle pain, testicle swelling, urgency, others Neurological: denies: dizziness, fainting, headache, left sided numbness, left sided weakness, numbness, paresthesia, pre-existing deficit, right sided numbness, right sided weakness, seizure, speech problems, tingling, tremors, weakness, others Musculoskeletal: denies: back pain, gout, joint pain, joint swelling, muscle pain, muscle stiffness, neck pain, others Integumetry: denies: bruises, change in color, change in hair/nails, dryness, laceration, lesions, lumps, rash, wounds, others Allergic/Immunocompromised: denies: Difficulty Healing, Frequent Infections, Hives, Itching, others Hematologic/Lymphatic: denies: anemia, blood clots, easy bleeding, easy bruising, swollen glands, others Endocrine: denies: excessive hunger, excessive sweating, excessive thirst, excessive urination, flushing, intolerance to cold, intolerance to heat, unexplained weight gain, unexplained weight loss, others Psychiatric: denies: anxiety, bipolar disorder, depression, hopeless, panic disorder, schizophrenia, sleepless, suicidal, others All Other Systems: Reviewed and Negative Physical Exam General Appearance: Moderate Distress, Obese HEENT: Normal ENT Inspection, PERRL/EOMI, Pharynx Normal, TMs Normal, Other (congested) Neck: Full Range of Motion, Non-Tender, Normal, Normal Inspection Respiratory: Chest Non-Tender, Crackles, Decreased Breath Sounds, Expiration, Inspiration, No Accessory Muscle Use, No Respiratory Distress, Wheezing Cardiovascular: No Edema, No JVD, No Murmur, No Gallop, Normal Peripheral P ulses, Regular Rate/Rhythm Breast Exam: Deferred Gastrointestinal: No Organomegaly, Non Tender, No Pulsatile Mass, Normal Bowel Sounds, Soft Genitalia: Deferred Pelvic: Deferred Rectal: Deferred Extremities: No calf tenderness, Normal capillary refill, Normal inspection, Normal range of motion, Non-tender, No pedal edema Musculoskeletal : Apperance: Normal Neurologic: Alert, 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 Was a procedure done?: No Differential Dx Differential Diagnosis: Anxiety, Asthma, Bronchitis, COPD, Pneumonia, Respiratory Distress, URI X-Ray, Labs, Meds, VS Vital Signs Date Time Temp Pulse Resp B/P (MAP) Pulse Ox O2 Delivery O2 Flow Rate FiO2 12/25/24 19:47 97.8 95 20 129/82 (98) 94 97.8 12/25/24 15:40 22 98 Room Air* 0 21 12/25/24 12:51 22 95 Room Air* 0 21 12/25/24 12:17 93 18 92 Room Air 12/25/24 12:17 93 22 112/80 (91) 92 12/25/24 11:51 94 12/25/24 11:45 97.4 97 22 151/96 94 97.4 Lab Test 12/25/24 12:39 Range/Units White Blood Count 15.9 H 4.4-10.8 10^3/uL Red Blood Count 5.22 4.5-5.90 10^6/uL Hemoglobin 16.1 13.5-17.5 g/dL Hematocrit 48.0 41.0-53.0 % Mean Corpuscular Volume 91.8 80.0-100.0 fL Mean Corpuscular Hemoglobin 30.8 28.0-32.0 pg Mean Corpuscular Hemoglobin Concent 33.5 32.0-36.0 g/dL Red Cell Distribution Width 15.3 H 11.8-14.3 % Platelet Count 252 140-450 10^3/uL Mean Platelet Volume 8.8 6.9-10.8 fL Neutrophils (%) (Auto) 77.5 37.0-80.0 % Lymphocytes (%) (Auto) 12.8 10.0-50.0 % Monocytes (%) (Auto) 7.6 0.0-12.0 % Eosinophils (%) (Auto) 1.3 0.0-7.0 % Basophils (%) (Auto) 0.8 0.0-2.0 % Neutrophils # (Auto) 12.4 H 1.6-8.6 10 ^3/uL Lymphocytes # (Auto) 2.0 0.4-5.4 10 ^3/uL Monocytes # (Auto) 1.2 0-1.3 10 ^3/uL Eosinophils # (Auto) 0.2 0-0.8 10 ^3/uL Basophils # (Auto) 0.1 0-0.2 10 ^3/uL Nucleated Red Blood Cells 0.9 % Platelet Estimate Adequate Clumped Platelets Few Anisocytosis (manual) Slight Sodium Level 140 136-145 mmol/L Potassium Level 4.0 3.5-5.1 mmol/L Chloride Level 110 H 98-107 mmol/L Carbon Dioxide Level 20 20-31 mmol/L Anion Gap 10 5-15 Blood Urea Nitrogen 14 9-23 mg/dL Creatinine 0.88 0.700-1.30 mg/dL Glomerular Filtration Rate Calc 102 >90 mL/min BUN/Creatinine Ratio 15.9 10.0-20.0 Serum Glucose 94 74-106 mg/dL Calcium Level 8.4 L 8.7-10.4 mg/dL Magnesium Level 2.0 1.6-2.6 mg/dL Total Bilirubin 0.3 0.2-1.0 mg/dL Aspartate Amino Transferase (AST) 29 13-40 U/L Alanine Aminotransferase (ALT) 29 7-40 U/L Alkaline Phosphatase 102 46-116 U/L Total Protein 6.4 5.7-8.2 g/dL Albumin 4.2 3.2-4.8 g/dL Current Medications Medications (Trade) Dose Ordered Sig/Boone Route Start Time Stop Time Status Last Admin Sodium Chloride 1,000 ml @ 150 mls/hr Q6H40M ONCE IV 12/25/24 12:15 12/25/24 18:54 DC 12/25/24 12:15 Albuterol (Ventolin Medneb) 5 mg ONCE ONCE NEB 12/25/24 12:15 12/25/24 12:17 DC 12/25/24 12:50 Methylprednisolone Sodium Succinate (Solu Medrol) 125 mg ONCE ONCE IV 12/25/24 12:15 12/25/24 12:17 DC 12/25/24 15:14 Azithromycin 250 ml @ 125 mls/hr ONCE ONCE IV 12/25/24 12:15 12/25/24 14:14 DC 12/25/24 15:14 Ipratropium [place] (Atrovent Medneb) 0.5 mg ONCE ONCE NEB 12/25/24 12:45 12/25/24 12:46 DC 12/25/24 12:51 Albuterol (Ventolin Medneb) 5 mg ONCE ONCE NEB 12/25/24 15:30 12/25/24 15:32 DC 12/25/24 15:40 Ipratropium [place] (Atrovent Medneb) 0.5 mg ONCE ONCE NEB 12/25/24 15:30 12/25/24 15:32 DC 12/25/24 15:40 Magnesium Sulfate/ Dextrose 100 ml @ 100 mls/hr Q1H IV 12/25/24 15:30 12/25/24 17:29 DC 12/25/24 17:40 X-Ray, Labs, Meds, VS Comment This patient came to the [facility] for follow up on his shortness of breath and cough this time he has been for four days he was admitted about two weeks ago for to three days for the same reason The blood pressure is 151/96 The chest x-ray is normal EKG shows normal sinus rhythm at 94 CBC [id number] with 77.5% neutrophils normal H&H CMP is negative Magnesium two The patient has a med neb and that did not help him at all He is waiting for this IV so we can continue his treatment Time of 1ST Reevaluation: 12:18 Reevaluation 1ST: Unchanged Time of 2ND Reevaluation: 14:05 Reevaluation 2ND: Unchanged Patient Education/Counseling: Diagnosis, Treatment, Prognosis Family Education/Counseling: Diagnosis, Treatment, Prognosis, No Family Present SEPSIS Sepsis Screen Date sepsis recognized/suspect: Dec 25, 2024 Time Sepsis recognized/suspect: 1146 Recent Procedure: No On Antibiotic Therapy: No Respiratory Rate >20: No Heart Rate >90: No Temp<36 C (96.8 F) or >38.3 C: No SBP <90 or MAP <65 mmHG: No New Acute Mental Status Change: No Is the patient on CPAP, BIPAP,: No Physician Orders Heplock Iv (12/25/24 12:13) Blood Pressure (12/25/24 12:13) Oxygen (12/25/24 12:13) Pulse Oximetry (12/25/24 12:13) Chest Two Views Routine (12/25/24 12:13) Vital Signs Date Time Temp Pulse Resp B/P (MAP) Pulse Ox O2 Delivery O2 Flow Rate FiO2 12/25/24 19:47 97.8 95 20 129/82 (98) 94 97.8 12/25/24 15:40 22 98 Room Air* 0 21 12/25/24 12:51 22 95 Room Air* 0 21 12/25/24 12:17 93 18 92 Room Air 12/25/24 12:17 93 22 112/80 (91) 92 12/25/24 11:51 94 12/25/24 11:45 97.4 97 22 151/96 94 97.4 Laboratory Tests Test 12/25/24 12:39 White Blood Count 15.9 10^3/uL (4.4-10.8) H Medications Medications Dose Ordered Sig/Boone Route Start Time Stop Time Status Last Admin Dose Admin Albuterol 5 mg ONCE ONCE NEB 12/25/24 12:15 12/25/24 12:17 DC 12/25/24 12:50 Albuterol 5 mg ONCE ONCE NEB 12/25/24 15:30 12/25/24 15:32 DC 12/25/24 15:40 Azithromycin 250 ml @ 125 mls/hr ONCE ONCE IV 12/25/24 12:15 12/25/24 14:14 DC 12/25/24 15:14 Ipratropium [place] 0.5 mg ONCE ONCE NEB 12/25/24 12:45 12/25/24 12:46 DC 12/25/24 12:51 Ipratropium [place] 0.5 mg ONCE ONCE NEB 12/25/24 15:30 12/25/24 15:32 DC 12/25/24 15:40 Magnesium Sulfate/ Dextrose 100 ml @ 100 mls/hr Q1H IV 12/25/24 15:30 12/25/24 17:29 DC 12/25/24 17:40 Methylprednisolone Sodium Succinate 125 mg ONCE ONCE IV 12/25/24 12:15 12/25/24 12:17 DC 12/25/24 15:14 Sodium Chloride 1,000 ml @ 150 mls/hr Q6H40M ONCE IV 12/25/24 12:15 12/25/24 18:54 DC 12/25/24 12:15 Departure 1 Departure Time of Disposition: 14:06 Impression: Primary Impression: Status asthmaticus Qualified Codes: J45.42 - Moderate persistent asthma with status asthmaticus Disposition: ADMITTED INPATIENT Admit to: Tele Condition: Serious Critical Care Note Critical Care Time?: No Stability Stability form required: Yes Heart Score Heart Score: Heart Score Response (Comments) Value History Slightly Suspicious 0 EKG Normal 0 Age 45-64 1 Risk Factors 1 or 2 risk factors 1 Troponin N/A 0 Total 2 I personally scribed for RITU GAMEZ MD ([email or web address]) on 12/25/24 at 12:18. Electronically submitted by Jonel Epps ([email or web address]). RITU GAMEZ MD Dec 25, 2024 12:18
[2024-12-25] MEDS: ALBUTEROL SULF 2.5 MG/0.5ML(0.5%) NEB SOLN NEB ONE ×3 (12:50→23:45)
[2024-12-25] MEDS: IPRATROPIUM BROM 0.5 MG/2.5ML INH SOL NEB ONE ×2 (12:51→15:40)
--- NOTE | 2024-12-25 12:52 | DVH ---
XY CHEST TWO VIEWS ROUTINE CLINICAL HISTORY: Acute bronchospasms COMPARISON: None TECHNIQUE: Frontal and lateral view of the chest was obtained FINDINGS: Lines and Tubes: None Lungs: No focal consolidation. Pleura: No effusion. No pneumothorax. Cardiomediastinal contours: Unremarkable Bones: No acute osseous abnormality. IMPRESSION: 1. No acute cardiopulmonary disease.
[2024-12-25 13:05] LABS: Hematocrit 48.0 % (41.0-53.0); Hemoglobin 16.1 g/dL (13.5-17.5); Mean Corpuscular Hemoglobin 30.8 pg (28.0-32.0); Mean Corpuscular Volume 91.8 fL (80.0-100.0); Nucleated Red Blood Cells % 0.9 %
[2024-12-25 13:09] LABS: Anisocytosis Slight
[2024-12-25 13:18] LABS: Alanine Aminotransferase 29 U/L (7-40); Albumin 4.2 g/dL (3.2-4.8); Alkaline Phosphatase 102 U/L (46-116); Anion Gap 10 (5-15); BUN/Creatinine Ratio 15.9 (10.0-20.0); Bilirubin, Total 0.3 mg/dL (0.2-1.0); Blood Urea Nitrogen 14 mg/dL (9-23); Glucose 94 mg/dL (74-106); Magnesium 2.0 mg/dL (1.6-2.6); Potassium 4.0 mmol/L (3.5-5.1); Sodium 140 mmol/L (136-145); Total Protein 6.4 g/dL (5.7-8.2)
[2024-12-25 13:20] LABS: Calcium 8.4 mg/dL (8.7-10.4); Carbon Dioxide 20 mmol/L (20-31); Chloride 110 mmol/L (98-107)
[2024-12-25] MEDS: AZITHROMYCIN 500MG/ 250ML 250 ML IV ONE (15:14)
[2024-12-25] MEDS: methylPREDNISolone SOD SUCC 125 MG/2 ML VL IV ONE (15:14)
[2024-12-25] MEDS: MAGNESIUM SULFATE 1GM/100ML 100 ML IV SCH ×2 (17:40→23:26)
[2024-12-25] MEDS ORDERED: MORPHINE SULFATE INJ 2 MG/ml SYRG IV PRN ×2 (23:45)
[2024-12-25] MEDS ORDERED: ONDANSETRON HCL 4 MG/2 ML VIAL IV PRN (23:45)
[2024-12-25] MEDS ORDERED: ACETAMINOPHEN 325 MG TAB PO PRN (23:45)
[2024-12-25] MEDS ORDERED: HYDROcodone-ACET 5/325MG TAB PO PRN (23:45)
[2024-12-25] MEDS ORDERED: NITROGLYCERIN 0.4 MG SL TAB SL PRN (23:45)
[2024-12-26] VITALS (10 sets, daily range): BP systolic 110–144; BP diastolic 66–85; PULSE 86–105; RESP 16–20; TEMP 97.4–97.9; O2SAT 93–98
[2024-12-26] MEDS: IPRATROPIUM BROM 0.5 MG/2.5ML INH SOL NEB PRN (04:10)
[2024-12-26 04:11] LABS: Hematocrit 46.2 % (41.0-53.0); Hemoglobin 15.5 g/dL (13.5-17.5); Mean Corpuscular Hemoglobin 30.7 pg (28.0-32.0); Mean Corpuscular Volume 91.7 fL (80.0-100.0); Nucleated Red Blood Cells % 0.0 %
[2024-12-26] MEDS: ALBUTEROL SULF 2.5 MG/0.5ML(0.5%) NEB SOLN NEB PRN (04:11)
[2024-12-26 04:57] LABS: Alanine Aminotransferase 28 U/L (7-40); Albumin 4.3 g/dL (3.2-4.8); Alkaline Phosphatase 101 U/L (46-116); Anion Gap 12 (5-15); BUN/Creatinine Ratio 11.6 (10.0-20.0); Bilirubin, Total 0.3 mg/dL (0.2-1.0); Blood Urea Nitrogen 11 mg/dL (9-23); Calcium 9.0 mg/dL (8.7-10.4); Carbon Dioxide 21 mmol/L (20-31); Chloride 105 mmol/L (98-107); Potassium 4.2 mmol/L (3.5-5.1); Sodium 138 mmol/L (136-145); Total Protein 7.0 g/dL (5.7-8.2)
[2024-12-26 05:06] LABS: Glucose 177 mg/dL (74-106)
[2024-12-26] MEDS: methylPREDNISolone SOD SUCC 125 MG/2 ML VL IV SCH (05:08)
[2024-12-26] MEDS: ASCORBIC ACID 500 MG TAB PO SCH (08:58)
[2024-12-26] MEDS: ZINC SULFATE 220mg CAP or TAB PO SCH (08:58)
[2024-12-26] MEDS: ENOXAPARIN SOD 40 MG/0.4 ML SYRINGE SC SCH (08:58)
[2024-12-26] MEDS: MULTIPLE VITAMIN TAB PO SCH (08:59)
[2024-12-26] MEDS ORDERED: MONT-8 PO (14:03)
--- NOTE | 2024-12-26 14:05 | DVHPN2 ---
Progress Note - Dictate vital signs Vital Sign Date Time Temp Pulse Resp B/P (MAP) Pulse Ox O2 Delivery O2 Flow Rate FiO2 12/26/24 09:34 97.7 93 20 140/75 (96) 95 97.7 12/26/24 09:34 Nasal Cannula* 3 32 Total Intake and Output 12/25/24 12/25/24 12/26/24 15:00 23:00 07:00 Intake Total 100 ml Balance 100 ml medications Current Medications Medications Dose Ordered Sig/Boone Route Start Time Stop Time Status Last Admin Dose Admin Acetaminophen 325 mg Q4HP PRN PO 12/25/24 23:45 Acetaminophen/ Hydrocodone Bitart 1 tab Q4HP PRN PO 12/25/24 23:45 Ondansetron HCl 4 mg Q4HP PRN IV 12/25/24 23:45 Enoxaparin Sodium 40 mg DAILY SC 12/26/24 10:00 12/26/24 08:58 Zinc Sulfate 220 mg DAILY PO 12/26/24 10:00 12/26/24 08:58 Ascorbic Acid 500 mg BID PO 12/26/24 10:00 12/26/24 08:58 Multivitamins 1 tab DAILY PO 12/26/24 10:00 12/26/24 08:59 Morphine Sulfate 2 mg Q4HPRN PRN IV 12/25/24 23:45 Nitroglycerin 0.4 mg Q5MINP PRN SL 12/25/24 23:45 Morphine Sulfate 2 mg Q30M PRN IV 12/25/24 23:45 Albuterol 2.5 mg Q4HP PRN NEB 12/25/24 23:45 12/26/24 09:27 Ipratropium [place] 0.5 mg Q4HP PRN NEB 12/25/24 23:45 12/26/24 09:27 Levofloxacin/ Dextrose 100 ml @ 100 mls/hr DAILY IV 12/26/24 10:00 Methylprednisolone Sodium Succinate 60 mg Q8HR IV 12/26/24 06:00 12/26/24 05:08 laboratory and microbiology Laboratory Tests 12/26/24 03:59 Test 12/26/24 03:59 Range/Units Serum Glucose 177 H 74-106 mg/dL ARABELLA NEWMAN RN [facility] Dec 26, 2024 14:05
--- NOTE | 2024-12-26 14:05 | DVHHP2 ---
Admitting Diagnosis: SOB History of Present Illness 54-year-old male with PMHx Asthma presents with a chief complaint of SOB and cough. Patient states that he was admitted to the hospital for 2 days about 12 days ago for the same chief complaint. Patient mentions that he was treated with antibiotics and given an inhaler for relief, but states that the antibiotics "made me feel worse". Patient has a non-productive cough. While in the emergency department the patient was evaluated by the provider, As per provider: Labs, vital signs, and imagining monitored. Patient will be admitted for further evaluation and treatment. I discussed admission with the patient/family and is in agreement to treatment plan. Patient Family History: Diabetes mellitus FH: colon cancer Hypertension Allergies: Coded Allergies: Cephalexin (Unverified Allergy, Unknown, 01/01/14) Penicillins (Unverified Allergy, Unknown, 01/01/14) Home Meds Active Scripts Diphenhydramine-Phenylephrine- (Robitussin Severe Multi-S 12.5-5-325 mg/10Ml) 1 Liq Liq, 1 LIQ PO Q4HP PRN for 7 Days, #1 LIQ Prov:ARABELLA NEWMAN NP 12/26/24 Amoxicillin & Pot Clavulanate (AUGMENTIN TABLET) 875 Mg Tb, 875 MG PO BID for 7 Days, #14 TAB Prov:ARABELLA NEWMAN NP 12/26/24 Prednisone (Prednisone) 20 Mg Tab, 40 MG PO DAILY for 7 Days, #7 MG Prov:ARABELLA NEWMAN NP 12/26/24 Albuterol Sulfate (VENTOLIN MDI) 90 Mcg Ih, 90 MCG IN Q6HPRN PRN for SHORTNESS OF BREATH for 30 Days, #1 INH Prov:ARABELLA NEWMAN NP 12/26/24 Albuterol Sulfate (Albuterol Sulfate Hfa) 108 Mcg/Act Aer, 108 MCG IN Q4HP PRN for 30 Days, #1 AER 2 puffs inhalation every 4 hrs as needed for shortness of breath Prov:ARABELLA NEWMAN NP 12/14/24 Clindamycin Hcl (Clindamycin Hcl) 300 Mg Cap, 300 MG PO TID for 10 Days, #30 CAP Prov:JOSELITO MORELAND MD 09/01/21 Ibuprofen (Ibuprofen) 600 Mg Tab, 1 TAB PO Q6HP PRN for 10 Days, #40 TAB For mild to moderate pain Prov:EDOUARD BURROUGHS MD 05/13/21 Hydrocodone-Acetaminophen (Hydrocodone Bitartrate/AC 5-325 mg) 1 Tab Tab, 1 TAB PO Q6HP PRN for 7 Days, #28 TAB For moderate to severe pain Prov:EDOUARD BURROUGHS MD 05/13/21 Zinc Sulfate (Zinc Sulfate) 220 Mg Tab, 220 MG PO DAILY for 30 Days, #30 TAB Prov:EDOUARD BURROUGHS MD 05/13/21 Cholecalciferol (Vitamin D3 Super Strength) 2,000 Unit Cap, 4000 UNIT PO DAILY for 30 Days, #60 CAP Prov:EDOUARD BURROUGHS MD 05/13/21 Ascorbic Acid (Gnp Vitamin C W/Abril Hips) 1,000 Mg Tab, 1000 MG PO DAILY for 30 Days, #30 TAB Prov:EDOUARD BURROUGHS MD 05/13/21 Reported Medications Montelukast Sodium (MONTELUKAST SODIUM) 10 Mg Tab, 1 TAB PO DAILY 12/26/24 Discontinued Scripts Levofloxacin Hemihydrate (LEVAQUIN 500 MG) 500 Mg Tab, 500 MG PO DAILY for 10 Days, #10 TAB Prov:ARABELLA NEWMAN [employer] 12/14/24 Clindamycin Hcl (Clindamycin Hcl) 150 Mg Cap, 300 MG PO Q8HR for 7 Days, #42 CAP Prov:VARUN LEBRON DO 06/07/21 Current Medications Current Medications Medications (Trade) Dose Ordered Sig/[place] Route PRN Reason Start Time Stop Time Status Last Admin Magnesium Sulfate/ Dextrose 100 ml @ 100 mls/hr Q1H IV 12/25/24 22:15 12/25/24 23:14 DC Acetaminophen (Tylenol Tablet) 325 mg Q4HP PRN PO MILD PAIN (1-3 PAIN SCALE) 12/25/24 23:45 12/26/24 18:39 DC Acetaminophen/ Hydrocodone Bitart ([place] 5/325MG Tab) 1 tab Q4HP PRN PO MODERATE PAIN (4-6 PAIN SCALE) 12/25/24 23:45 12/26/24 18:39 DC Ondansetron HCl (Zofran) 4 mg Q4HP PRN IV NAUSEA / VOMITING 12/25/24 23:45 12/26/24 18:39 DC Enoxaparin Sodium (Lovenox) 40 mg DAILY SC 12/26/24 10:00 12/26/24 18:39 DC 12/26/24 08:58 Zinc Sulfate 220 mg DAILY PO 12/26/24 10:00 12/26/24 18:39 DC 12/26/24 08:58 Ascorbic Acid (Vitamin C Tablet) 500 mg BID PO 12/26/24 10:00 12/26/24 18:39 DC 12/26/24 08:58 Multivitamins (Mvi Tab) 1 tab DAILY PO 12/26/24 10:00 12/26/24 18:39 DC 12/26/24 08:59 Morphine Sulfate 2 mg Q4HPRN PRN IV SEVERE PAIN (7-10 PAIN SCALE) 12/25/24 23:45 12/26/24 18:39 DC Nitroglycerin (Ntrostat Sublingual) 0.4 mg Q5MINP PRN SL FOR CHEST PAIN 12/25/24 23:45 12/26/24 18:39 DC Morphine Sulfate 2 mg Q30M PRN IV FOR CHEST PAIN 12/25/24 23:45 12/26/24 18:39 DC Albuterol (Ventolin Medneb) 2.5 mg Q4HP PRN NEB SHORTNESS OF BREATH 12/25/24 23:45 12/26/24 18:39 DC 12/26/24 14:49 Ipratropium [place] (Atrovent Medneb) 0.5 mg Q4HP PRN NEB SHORTNESS OF BREATH 12/25/24 23:45 12/26/24 18:39 DC 12/26/24 14:49 Levofloxacin/ Dextrose 100 ml @ 100 mls/hr DAILY IV 12/26/24 10:00 12/26/24 18:39 DC Methylprednisolone Sodium Succinate (Solu Medrol) 60 mg Q8HR IV 12/26/24 06:00 12/26/24 18:39 DC 12/26/24 14:09 Review of Systems Constitutional: denies chills, denies fever, denies malaise Eyes: denies eye pain, denies vision change ENT: denies ear pain, denies headache, denies nasal congestion, denies painful swallowing, denies voice change Cardiovascular: denies chest pain, denies edema, denies orthopnea, denies palpitations, denies paroxysmal nocturnal dyspnea Respiratory: denies cough, denies shortness of breath Gastrointestinal: denies constipation, denies diarrhea, denies nausea, denies vomiting Genitourinary: denies dysuria, denies frequent urination, denies urethral discharge Musculoskeletal: denies back pain, denies joint pain, denies muscle pain Skin: denies bruising, denies itching, denies rash Neurological: denies focal weakness, denies headache, denies sensory changes Psychiatric: denies anxiety, denies depression Endocrine: denies polydipsia, denies polyuria Hematologic/Lymphatic: denies easy bleeding, denies easy bruising, denies enlarged lymph nodes Allergic/Immunologic: denies allergy, denies hives Vital Signs Vital Signs Date Time Temp Pulse Resp B/P (MAP) Pulse Ox O2 Delivery O2 Flow Rate FiO2 12/26/24 15:05 86 110/67 (81) 94 12/26/24 14:54 18 12/26/24 14:49 Room Air 12/26/24 14:49 0 21 12/26/24 09:34 97.7 97.7 Physical Exam General Appearance: alert, no distress HEENT: EOMI, PERRLA, normal external inspect of ears, no icterus, no nasal drainage Neck: no carotid bruit, no jugular venous distention (JVD), no lymphadenopathy Chest: normal thorax Respiratory: clear to auscultation, normal air movement Cardiovascular: regular rate and rhythm, no diastolic murmur, no jugular venous distention (JVD), no rub, no systolic murmur Abdominal: soft, no hepatomegaly, no mass, no splenomegaly, no tenderness Genitourinary: grossly normal external Musculoskeletal: no joint tenderness, no swelling Extremities: normal pulses, no calf tenderness, no clubbing, no cyanosis, no edema Skin: no bruising, no jaundice, no rash Neurological: alert, No focal deficit SEPSIS Sepsis Screen Date sepsis recognized/suspect: Dec 25, 2024 Time Sepsis recognized/suspect: 6 Recent Procedure: No On Antibiotic Therapy: No Respiratory Rate >20: No Heart Rate >90: No Temp<36 C (96.8 F) or >38.3 C: No SBP <90 or MAP <65 mmHG: No New Acute Mental Status Change: No Is the patient on CPAP, BIPAP,: No Physician Orders Electrocardigram (12/25/24 11:48) Heplock Iv (12/25/24 12:13) Blood Pressure (12/25/24 12:13) Oxygen (12/25/24 12:13) Pulse Oximetry (12/25/24 12:13) Chest Two Views Routine (12/25/24 12:13) Admit (12/25/24 23:38) Oxygen By Nasal Cannula (12/25/24 23:38) Med [place] Sub Treatment (12/25/24 23:41) *Consult / (12/26/24 14:02) Discharge (12/26/24 15:44) Vital Signs Date Time Temp Pulse Resp B/P (MAP) Pulse Ox O2 Delivery O2 Flow Rate FiO2 12/26/24 15:05 86 110/67 (81) 94 12/26/24 14:54 91 18 97 12/26/24 14:49 93 Room Air 12/26/24 14:49 93 Room Air* 0 21 12/26/24 14:49 92 18 93 12/26/24 09:34 97.7 93 20 140/75 (96) 95 97.7 12/26/24 09:34 93 20 95 Nasal Cannula* 3 32 12/26/24 09:33 97 18 98 12/26/24 09:27 94 Nasal Cannula* 3 32 12/26/24 09:27 94 18 94 12/26/24 09:27 94 Nasal Cannula 3.0 12/26/24 08:38 97.7 93 20 140/75 (96) 95 97.7 12/26/24 08:00 81 12/26/24 08:00 80 21 119/62 (81) 92 12/26/24 05:00 97.9 96 16 135/66 (89) 93 97.9 12/26/24 04:00 97 20 98 12/26/24 04:00 96 20 98 12/26/24 04:00 94 12/26/24 01:42 97.6 105 16 156/90 (112) 93 97.6 12/26/24 00:00 97.4 105 20 144/85 97 0.0 21 97.4 12/25/24 23:45 20 97 Room Air* 0 21 21 12/25/24 23:25 97.4 105 20 144/85 (104) 93 97.4 12/25/24 19:47 97.8 95 20 129/82 (98) 94 97.8 12/25/24 15:40 22 98 Room Air* 0 21 12/25/24 12:51 22 95 Room Air* 0 21 12/25/24 12:17 93 18 92 Room Air 12/25/24 12:17 93 22 112/80 (91) 92 12/25/24 11:51 94 12/25/24 11:45 97.4 97 22 151/96 94 97.4 Laboratory Tests Test 12/25/24 12:39 12/26/24 03:59 White Blood Count 15.9 10^3/uL (4.4-10.8) H 17.7 10^3/uL (4.4-10.8) H Medications Medications Dose Ordered Sig/[place] Route Start Time Stop Time Status Last Admin Dose Admin Ascorbic Acid 500 mg BID PO 12/26/24 10:00 12/26/24 18:39 DC 12/26/24 08:58 Enoxaparin Sodium 40 mg DAILY SC 12/26/24 10:00 12/26/24 18:39 DC 12/26/24 08:58 Multivitamins 1 tab DAILY PO 12/26/24 10:00 12/26/24 18:39 DC 12/26/24 08:59 Zinc Sulfate 220 mg DAILY PO 12/26/24 10:00 12/26/24 18:39 DC 12/26/24 08:58 Results Labs Test 12/26/24 03:59 12/25/24 12:39 Range/Units White Blood Count 17.7 H 4.4-10.8 10^3/uL Red Blood Count 5.04 4.5-5.90 10^6/uL Hemoglobin 15.5 13.5-17.5 g/dL Hematocrit 46.2 41.0-53.0 % Mean Corpuscular Volume 91.7 80.0-100.0 fL Mean Corpuscular Hemoglobin 30.7 28.0-32.0 pg Mean Corpuscular Hemoglobin Concent 33.5 32.0-36.0 g/dL Red Cell Distribution Width 15.2 H 11.8-14.3 % Platelet Count 232 140-450 10^3/uL Mean Platelet Volume 8.5 6.9-10.8 fL Neutrophils (%) (Auto) 90.2 H 37.0-80.0 % Lymphocytes (%) (Auto) 6.1 L 10.0-50.0 % Monocytes (%) (Auto) 3.3 0.0-12.0 % Eosinophils (%) (Auto) 0.0 0.0-7.0 % Basophils (%) (Auto) 0.4 0.0-2.0 % Neutrophils # (Auto) 15.9 H 1.6-8.6 10 ^3/uL Lymphocytes # (Auto) 1.1 0.4-5.4 10 ^3/uL Monocytes # (Auto) 0.6 0-1.3 10 ^3/uL Eosinophils # (Auto) 0 0-0.8 10 ^3/uL Basophils # (Auto) 0.1 0-0.2 10 ^3/uL Nucleated Red Blood Cells 0.0 % Sodium Level 138 136-145 mmol/L Potassium Level 4.2 3.5-5.1 mmol/L Chloride Level 105 98-107 mmol/L Carbon Dioxide Level 21 20-31 mmol/L Anion Gap 12 5-15 Blood Urea Nitrogen 11 9-23 mg/dL Creatinine 0.95 0.700-1.30 mg/dL Glomerular Filtration Rate Calc 95 >90 mL/min BUN/Creatinine Ratio 11.6 10.0-20.0 Serum Glucose 177 H 74-106 mg/dL Calcium Level 9.0 8.7-10.4 mg/dL Total Bilirubin 0.3 0.2-1.0 mg/dL Aspartate Amino Transferase (AST) 26 13-40 U/L Alanine Aminotransferase (ALT) 28 7-40 U/L Alkaline Phosphatase 101 46-116 U/L Total Protein 7.0 5.7-8.2 g/dL Albumin 4.3 3.2-4.8 g/dL Platelet Estimate Adequate Clumped Platelets Few Anisocytosis (manual) Slight Magnesium Level 2.0 1.6-2.6 mg/dL Plan 1. Acute hypoxic respiratory failure Monitor, med neb treatment, pulmonary consult, IV abx 2. Acute asthma exacerbation Monitor, med neb treatment, pulmonary consult, IV abx 3. Smoker Monitor, smoking cessation 4. Morbid obesity Monitor, PPI, DVT prophylaxis, cardiac diet Plan discussed with: Patient, Other ARABELLA NEWMAN NP Dec 26, 2024 14:05
[2024-12-26] MEDS ORDERED: PRED20TA2 PO (15:44)
[2024-12-26] MEDS ORDERED: AUG875T PO (15:44)
[2024-12-26] MEDS ORDERED: ALBUAER3 IN (15:44)
--- NOTE | 2024-12-26 15:45 | DVHDS2 ---
Discharge Summary Date of Admission Dec 25, 2024 at 23:38 Date of Discharge: Dec 26, 2024 Labs/Diagnostic Data: Laboratory Results Test 12/26/24 03:59 12/25/24 12:39 White Blood Count 17.7 10^3/uL (4.4-10.8) Red Blood Count 5.04 10^6/uL (4.5-5.90) Hemoglobin 15.5 g/dL (13.5-17.5) Hematocrit 46.2 % (41.0-53.0) Mean Corpuscular Volume 91.7 fL (80.0-100.0) Mean Corpuscular Hemoglobin 30.7 pg (28.0-32.0) Mean Corpuscular Hemoglobin Concent 33.5 g/dL (32.0-36.0) Red Cell Distribution Width 15.2 % (11.8-14.3) Platelet Count 232 10^3/uL (140-450) Mean Platelet Volume 8.5 fL (6.9-10.8) Neutrophils (%) (Auto) 90.2 % (37.0-80.0) Lymphocytes (%) (Auto) 6.1 % (10.0-50.0) Monocytes (%) (Auto) 3.3 % (0.0-12.0) Eosinophils (%) (Auto) 0.0 % (0.0-7.0) Basophils (%) (Auto) 0.4 % (0.0-2.0) Neutrophils # (Auto) 15.9 10 ^3/uL (1.6-8.6) Lymphocytes # (Auto) 1.1 10 ^3/uL (0.4-5.4) Monocytes # (Auto) 0.6 10 ^3/uL (0-1.3) Eosinophils # (Auto) 0 10 ^3/uL (0-0.8) Basophils # (Auto) 0.1 10 ^3/uL (0-0.2) Nucleated Red Blood Cells 0.0 % Sodium Level 138 mmol/L (136-145) Potassium Level 4.2 mmol/L (3.5-5.1) Chloride Level 105 mmol/L (98-107) Carbon Dioxide Level 21 mmol/L (20-31) Anion Gap 12 (5-15) Blood Urea Nitrogen 11 mg/dL (9-23) Creatinine 0.95 mg/dL (0.700-1.30) Glomerular Filtration Rate Calc 95 mL/min (>90) BUN/Creatinine Ratio 11.6 (10.0-20.0) Serum Glucose 177 mg/dL (74-106) Calcium Level 9.0 mg/dL (8.7-10.4) Total Bilirubin 0.3 mg/dL (0.2-1.0) Aspartate Amino Transferase (AST) 26 U/L (13-40) Alanine Aminotransferase (ALT) 28 U/L (7-40) Alkaline Phosphatase 101 U/L (46-116) Total Protein 7.0 g/dL (5.7-8.2) Albumin 4.3 g/dL (3.2-4.8) Platelet Estimate Adequate Clumped Platelets Few Anisocytosis (manual) Slight Magnesium Level 2.0 mg/dL (1.6-2.6) Other Laboratory Tests 12/26/24 03:59 Brief Hx & Hospital Course: 54-year-old male with PMHx Asthma presents with a chief complaint of SOB and cough. Patient states that he was admitted to the hospital for 2 days about 12 days ago for the same chief complaint. Patient mentions that he was treated with antibiotics and given an inhaler for relief, but states that the antibiotics "made me feel worse". Patient has a non-productive cough. Patient was admitted on 2024 for acute asthma exacerbation. Patient had acute hypoxic respiratory failure. He was briefly placed on oxygen. He received med neb treatments, IV steriods, and antibiotics. Patient condition improved and he is on room air. Patient was requesting to be discharged home on antibiotics, steroids, and cough suppressants. I did instruct him to follow up with his PCP in one week. There were no complaints or new complaints upon discharge, all questions and concerns were answered. Patient was advised to return to the ER or call 911 if any headaches, dizziness, shortness of breath, chest pain, bleeding, fevers, or worsening of medical condition. Patient/Family was counseled about treatment plan, medications, possible side effects, patient verbalized understanding. All questions were answered to the best of my ability. The patient symptoms improved and they are okay to be DC. Condition at Discharge: Stable Final Diagnosis/Problems List Acute asthma exacerbation Discharge Disposition: Home Discharge Instruct/Medications Diet: Cardiac 2g Na,low cholest Activity: No Restrictions, As Tolerated Follow Up/Referral: pcp 1 week Medications: Albuterol inhaler Augmentin Prednisone Scheduled Amoxicillin & Pot Clavulanate (Augmentin Tablet), 875 MG PO BID Ascorbic Acid (Gnp Vitamin C W/Abril Hips), 1,000 MG PO DAILY Cholecalciferol (Vitamin D3 Super Strength), 4,000 UNIT PO DAILY Clindamycin Hcl (Clindamycin Hcl), 300 MG PO TID Montelukast Sodium (Montelukast Sodium), 1 TAB PO DAILY, (Reported) Prednisone (Prednisone), 40 MG PO DAILY Zinc Sulfate (Zinc Sulfate), 220 MG PO DAILY Scheduled PRN Albuterol Sulfate (Albuterol Sulfate Hfa), 108 MCG IN Q4HP PRN Albuterol Sulfate (Ventolin Mdi), 90 MCG IN Q6HPRN PRN for SHORTNESS OF BREATH Diphenhydramine-Phenylephrine- (Robitussin Severe Multi-S 12.5-5-325 mg/10Ml), 1 LIQ PO Q4HP PRN Hydrocodone-Acetaminophen (Hydrocodone Bitartrate/AC 5-325 mg), 1 TAB PO Q6HP PRN Ibuprofen (Ibuprofen), 1 TAB PO Q6HP PRN Discontinued Medications Clindamycin Hcl (Clindamycin Hcl), 300 MG PO Q8HR Levofloxacin Hemihydrate (Levaquin 500 Mg), 500 MG PO DAILY Discharge Statement: "Patient was advised to return to the ER or call 911 if any headaches, dizziness, shortness of breath, chest pain, abdominal pain, bleeding, fevers, or worsening of medical condition. Patient was counseled about treatment plan, medications, possible side effects, patientverbalized understanding. All questions were answered to the best of my ability. This discharge took greater then 30 minutes in planning, reviewing documentation, counseling the patient, and discussing with other team members." ASSESSMENT ASSESSMENT Assessment Acute asthma exacerbation ARABELLA NEWMAN NP Dec 26, 2024 15:45
[2024-12-26] MEDS ORDERED: DIPH1LIQ PO (16:18)
== END 2024-12-26 16:45 | disposition home or self-care (01) | DRG 133 ==
LOC: ER 11:44 → OVERFLOW 23:38
PROVIDERS: ADMIT Internal Medicine; ATTEND Internal Medicine
DX: J96.01 Acute respiratory failure with hypoxia (principal); J45.902 Unspecified asthma with status asthmaticus; F17.210 Nicotine dependence, cigarettes, uncomplicated; E66.01 Morbid (severe) obesity due to excess calories; E11.9 Type 2 diabetes mellitus without complications; Z90.49 Acquired absence of other specified parts of digestive tract; Z79.899 Other long term (current) drug therapy; Z82.49 Family history of ischemic heart disease and other diseases of the circulatory system; Z80.0 Family history of malignant neoplasm of digestive organs; Z88.0 Allergy status to penicillin; Z79.2 Long term (current) use of antibiotics; Z79.1 Long term (current) use of non-steroidal anti-inflammatories (NSAID); Z68.41 Body mass index [BMI] 40.0-44.9, adult
CPT/HCPCS: 36415; 71046; 80053; 83735; 85025; 93005; 94640; 96360; G0378; J1956